=== PATIENT | female | born 1940 | race African-American/Black ===

== ENCOUNTER 2016-09-18 09:29 | Emergency (ER) | payer OTHER ==
[~2016-09-18] VITALS: Ht 162.6 cm; Wt 56.7 kg
[~2016-09-18 09:29] MED LIST: ACETAMINOPHEN-1 EAC1 PO; ACYCLOVIR 400400 M1 PO; ACYCLOVIR 400400 MG PO; ADULT LOW DOSE81 MG PO; KEFLEX500 MG PO; LEVOTHYROXIN0.025 MG PO; LISINOPRIL2.5 MG PO; NEXIUM40 MG PO; PAIN & FEVER500 MG PO; TRIAMCINOLONE A80 G2 TOP; VITAMIN D1000 UNI1 PO; ZESTRIL10 MG PO
[2016-09-18] MEDS ORDERED: CELEXA10 MG PO (09:42)
[2016-09-18] MEDS ORDERED: ESTRADIOL 1 MG T1 M1 TOP (09:43)
[2016-09-18] MEDS ORDERED: HYDROXYZINE HCL25 M1 PO (09:43)
== END 2016-09-18 10:36 | disposition home or self-care (01) ==
LOC: ER 09:29
DX: S30.0XXA Contusion of lower back and pelvis, initial encounter (principal); I10 Essential (primary) hypertension; K21.9 Gastro-esophageal reflux disease without esophagitis; E03.9 Hypothyroidism, unspecified; Z90.710 Acquired absence of both cervix and uterus; Z88.8 Allergy status to other drugs, medicaments and biological substances; Z91.013 Allergy to seafood; W01.0XXA Fall on same level from slipping, tripping and stumbling without subsequent striking against object, initial encounter; Y93.89 Activity, other specified; Y92.89 Other specified places as the place of occurrence of the external cause; Y99.8 Other external cause status

== ENCOUNTER 2016-10-12 10:42 | Emergency (ER) | payer OTHER ==
[~2016-10-12] VITALS: Ht 162.6 cm; Wt 55.8 kg
--- NOTE | ~2016-10-12 | EKG ---
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 10/13/16 0849 55 Devang Melgoza MD, [facility] /EPI
--- NOTE | ~2016-10-12 | EKG ---
[facility] [address] [address] ELECTROCARDIOGRAM REPORT Name: KENNEDY KEBEDEA JEAN Room [facility]: [facility] [id number] Admission: 10/12/16 Attend Phys: Discharge: Date of : 40 Report #: [id number] THIS REPORT FOR: //name// 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
[~2016-10-12 10:42] MED LIST changes: +CELEXA10 MG PO; +ESTRADIOL 1 MG T1 M1 TOP; +HYDROXYZINE HCL25 M1 PO
[2016-10-12 11:41] LABS: ABSOLUTE NEUTROPHILS 2.6 thou/uL (1.4-8.2); BASOPHILS 0.9 % (0.0-2.0); EOSINOPHILS 1.2 % (0.0-3.0); HEMATOCRIT 30.7 % (37.0-47.0); HEMOGLOBIN 10.2 gm/dL (12.0-15.0); LYMPHOCYTES 29.2 % (24.0-44.0); MCH 29.1 pg (26.0-34.0); MCHC 33.1 g/dL (28.0-37.0); MCV 87.8 fL (80.0-100.0); MONOCYTES 9.9 % (1.0-8.0); PLATELET COUNT 224 thou/uL (150-400); POLYS 58.8 % (36.0-66.0); RDW 14.8 % (10.5-14.5); WBC 4.4 thou/uL (4.0-11.0)
[2016-10-12 11:42] LABS: MANUAL DIFF NO
[2016-10-12 11:45] LABS: ANION GAP 5 mmol/L (7-16); BUN 17 mg/dL (7-18); CALCIUM 8.9 mg/dL (8.5-10.1); CHLORIDE 106 mmol/L (98-107); CO2 30 mmol/L (21-32); GLUCOSE 110 mg/dL (74-106); POTASSIUM 4.3 mmol/L (3.5-5.1); SODIUM 141 mmol/L (136-145)
[2016-10-12 11:53] LABS: TROPONIN-I < 0.04 ng/mL (<0.04-0.07)
[2016-10-12 12:19] LABS: DIRECT BILIRUBIN 0.1 mg/dL (<0.1-0.3); TOTAL BILIRUBIN 0.4 mg/dL (<0.1-1.0); TOTAL PROTEIN 7.3 g/dL (6.4-8.2)
== END 2016-10-12 13:28 | disposition home or self-care (01) ==
LOC: ER 10:42
PROVIDERS: Emergency Medicine; Nurse Practitioner
DX: R07.89 Other chest pain (principal); I10 Essential (primary) hypertension; K21.9 Gastro-esophageal reflux disease without esophagitis; E03.9 Hypothyroidism, unspecified; Z90.710 Acquired absence of both cervix and uterus; Z79.82 Long term (current) use of aspirin; Z88.8 Allergy status to other drugs, medicaments and biological substances; Z91.013 Allergy to seafood

== ENCOUNTER 2017-04-20 07:47 | Emergency (ER) | payer MEDICARE ==
[~2017-04-20] VITALS: Ht 157.5 cm; Wt 54.4 kg
[2017-04-20] MEDS ORDERED: ARICEPT 5 MG TAB5 MG PO (09:44)
[2017-04-20] MEDS ORDERED: ZYPREXA 5 MG TAB5 MG PO (09:44)
[2017-04-20] MEDS ORDERED: NAMENDA 10 MG T10 MG PO (09:44)
[2017-04-20 09:48] VITALS: BP 124/54
== END 2017-04-20 11:03 | disposition home or self-care (01) ==
LOC: ER 07:47
DX: S09.90XA Unspecified injury of head, initial encounter (principal); I10 Essential (primary) hypertension; K21.9 Gastro-esophageal reflux disease without esophagitis; E03.9 Hypothyroidism, unspecified; Z90.710 Acquired absence of both cervix and uterus; Z91.041 Radiographic dye allergy status; Z91.013 Allergy to seafood; W18.30XA Fall on same level, unspecified, initial encounter; Y93.89 Activity, other specified; Y92.89 Other specified places as the place of occurrence of the external cause; Y99.8 Other external cause status

== ENCOUNTER 2017-06-27 09:29 | Emergency (ER) | payer MEDICARE ==
[~2017-06-27] VITALS: Ht 162.6 cm; Wt 68.0 kg
[~2017-06-27 09:29] MED LIST changes: +ARICEPT 5 MG TAB5 MG PO; +NAMENDA 10 MG T10 MG PO; +ZYPREXA 5 MG TAB5 MG PO
[2017-06-27] MEDS ORDERED: NORCO 5-325 TA1 EACH PO (10:38)
== END 2017-06-27 11:19 | disposition home or self-care (01) ==
LOC: ER 09:29
DX: S09.90XA Unspecified injury of head, initial encounter (principal); M25.511 Pain in right shoulder; M25.512 Pain in left shoulder; M25.521 Pain in right elbow; I10 Essential (primary) hypertension; K21.9 Gastro-esophageal reflux disease without esophagitis; E03.9 Hypothyroidism, unspecified; Z91.041 Radiographic dye allergy status; Z91.013 Allergy to seafood; W06.XXXA Fall from bed, initial encounter; Y93.89 Activity, other specified; Y92.89 Other specified places as the place of occurrence of the external cause; Y99.8 Other external cause status

== ENCOUNTER 2018-04-17 11:35 | Emergency (ER) | payer MEDICARE ==
[~2018-04-17] VITALS: Ht 165.1 cm; Wt 56.7 kg
[~2018-04-17 11:35] MED LIST changes: +NORCO 5-325 TA1 EACH PO
[2018-04-17 13:30] VITALS: BP 114/56
== END 2018-04-17 13:30 | disposition home or self-care (01) ==
LOC: ER 11:35
DX: J02.9 Acute pharyngitis, unspecified (principal); J06.9 Acute upper respiratory infection, unspecified; I10 Essential (primary) hypertension; K21.9 Gastro-esophageal reflux disease without esophagitis; E03.9 Hypothyroidism, unspecified; Z90.710 Acquired absence of both cervix and uterus

== ENCOUNTER 2018-06-21 18:22 | Inpatient (IN) | payer MEDICARE ==
[~2018-06-21] VITALS: Ht 162.6 cm; Wt 58.5 kg
--- NOTE | ~2018-06-21 | D ---
[facility] [place] [address] [place] [address] DISCHARGE SUMMARY Name: ADONIS KEBEDE Room #: 360-[facility] IN M.R.#: [id number] Admission: 06/21/18 ������������������ Attend Phys: Nicholas Wilkinson MD Discharge: 06/24/18 ������������������ Date of : 40 Report #: [id number] THIS REPORT FOR: //name// CC: Nicholas Wilkinson DATE OF SERVICE: 06/24/2018 SUMMARY OF HISTORY AND PHYSICAL: The patient was brought to the Emergency Room by her son because of several days of chest discomfort and shortness of breath with exertion. The chest discomfort was variable and atypical for coronary disease. She did report walking fast made her chest discomfort worse and also made her short of breath. She was found to have bilateral pulmonary infiltrates as well as a fever of 38.2 with mild hypertensive response of 160/70. For these reasons, admission to treat community-acquired pneumonia was indicated. Review of her previous [facility] records showed multiple Emergency Room visits for noncardiac chest pain as well as a short stay admission on 08/06/2011 again for chest pain at which time a stress echocardiogram was negative. Subsequent Nuclear stress study 2012 was also negative. She was placed on intravenous antibiotics and intravenous fluids and got stronger. She was able to walk 100 feet with physical therapy and the day of discharge walked 20 feet. Occupational therapy noted that she was able to perform her ADLs with minimal assistance, although she did appear weak. It is noted that ordinarily she walks around the facility independently. She did use an IV pole on rollers on her second hospital day. She was noted to have poor safety and environmental awareness as well as navigational skills by the physical therapist. She did have a small localized tremor in her thumbs bilaterally. In the past in my office, she is noticed to have slight hesitating short gait. She one time complained of pain all over, but not further. She did report dysuria once. She had decreased breath sounds in the right base at discharge and crackles in both bases on admission. Her pharynx showed minimal uvular edema and she complained of a sore throat. Nursing staff reported she was forgetful and impulsive, but her leg strength to be strong. She had microhematuria, but her urine culture obtained from the Emergency Room specimen was no growth. Her usual morning dose of olanzapine was postponed her first hospital day, and that evening she became aggitated. Her son came in and assisted in getting her [facility] [address] [place] [address] DISCHARGE SUMMARY Name: ADONIS KEBEDE Room #: 360-P [facility] IN .R.#: [id number] Admission: 06/21/18 ������������������ Attend Phys: Nicholas Wilkinson MD Discharge: 06/24/18 ������������������ Date of : 40 Report #: [id number] to take her medication. There were no further behavoir problems. LABORATORY DATA: Creatinine was 0.8 on admission with a BUN of 13, which are baseline for her. Her SGOT was elevated at 96, it is usually normal. Lactic acid normal at 1.1. Troponin negative. NT-proBNP was 311. White blood cell count was 10,000 on admission with 73% neutrophils, 16% lymphocytes and mildly elevated monocytosis of 11%. Hemoglobin was 9.6, which is on the low range of her usual, which varies between 9.8 and 10.3 over the last several years in the office. Follow up white blood cell count dropped to 3.7 and hemoglobin dropped to 8.7 and stayed there. Sed rate was 30 and CRP was elevated at 28.8 (less than 9). Free T4 was 0.8 and TSH 0.725 both normal. Folate 20.6 and vitamin B12 was in the low normal range at 349. Erythropoietic and methylmalonic acid levels are pending at discharge. Urinalysis showed trace protein, 2+ ketones, 3+ blood, 0 to 9 bacteria were seen and 3 to 10 rbc's. Iron was low at 43, iron binding capacity low at 122 with 35% saturation. DIAGNOSTIC DATA: CT scan of the chest showed bibasilar atelectasis/infiltrates on chest x-ray to be "some linear atelectasis seen in the lung bases with tiny pleural effusion." There is a minor patchy infiltrate in the posterior aspect of the right upper lung and a minor patchy infiltrate in the mid left upper lung. Additional findings were 18 x 12 mm left thyroid mass and an extensive coronary atherosclerosis. MRI scan of the head showed minimal nonspecific foci of increased white matter signal consistent with microvascular ischemic change/nonspecific leukomalacia/demyelination. Note is made that these findings are minimal for the patient's age. DIAGNOSES: 1. Admitted for community-acquired pneumonia, minimal bilateral upper lobe patchy infiltrates by CT scanning. Linear atelectasis in the lung bases with tiny pleural effusion showed on the chest x-ray as atelectasis/infiltrate. 2. Left thyroid mass by CT scan of 18mm x 12 mm. There was a distant history of thyroid nodules seen on ultrasound at [facility] from 04/01/2012, which [facility] [address] [place] [address] DISCHARGE SUMMARY Name: ADONIS KEBEDE Room #: 360-P [facility] IN Sruthi#: [id number] Admission: 06/21/18 ������������������ Attend Phys: Nicholas Wilkinson MD Discharge: 06/24/18 ������������������ Date of : 40 Report #: [id number] includes an addendum noting that those two left thyroid lobe solid nodule masses were stable when compared with an outside study from 10/10/2008. A FNA of the nodules back then was negative. 3. Chronic microhematuria. 4. Mild chronic anemia of chronic disease with baseline hemoglobin from 9.8 to 10.3 with an acute drop to 8.7 from illness and hydration. Distant past a hematology consult and bone marrow diagnosed anemia of chronic disease, and a benign monoclomal gammopathy. Hb at that time was 11. 4a. Monoclonal gammopathy, benign, hx of. 5. Low iron levels. 6. Slowly progressive dementia. Prior evaluation by Napoleon Millard DO, at [facility]. 7. MRI scanning shows a fewer microvascular/nonspecific leukomalacia/demyelination type changes than expected for her age. 8. EKG showed nonspecific ST segment abnormalities and unchanged from 10/12/2016. 9. Coronary artery disease/coronary calcifications seen on CT scan - that is asymptomatic. Negative nuclear stress test 2012 [facility]. 10. Long history of noncardiac chest pain. 11. She did report dysuria on admission. 12. Hx of B 12 deficiency; B 12 low normal, MMA pending. 13. Hx of low vitamin D at 18. HOSPITAL COURSE: After 3 days of IV antibiotic was seen in infectious disease consultation by Dr. Felix Mckeon who agreed with the diagnosis of community-acquired pneumonia and recommended cefuroxime 500 mg orally for 5 more days. PLAN: The patient is returned home on her usual medications donepezil 10 mg in the morning at 6, loratadine 10 mg daily at 6, memantine 10 mg daily at 8 and olanzapine 5 mg daily at 8 for dementia with behavior problems. Acetaminophen is continued. Mucinex DM is continued. The only medication change is the addition of cefuroxime 500 mg twice daily for 7 more days. She is to follow up with me in my office in approximately 7 to 10 days. Further anemia evaluation is planned including stools for hidden blood and reticulocyte count and hemoglobin electrophoresis. Pending: Erythropoietin level and methylmalonic acid level. ��������������������������������������������� ���������������������������������������� By: ��������������������������������������������� [id number] Nicholas Wilkinson MD /nt
--- NOTE | ~2018-06-21 | H ---
[facility] [place] [address] [place] [address] HISTORY AND PHYSICAL Name: ADONIS KEBEDE Room #: 360-P [facility] IN M.R.#: [id number] Admission: 06/21/18 ������������������ Attend Phys: Nicholas Wilkinson MD Discharge: ������������������ Date of : 40 Report #: [id number] THIS REPORT FOR: //name// CC: Nicholas Wilkinson DATE OF SERVICE: 06/21/2018 CHIEF COMPLAINT: Shortness of breath. HISTORY OF PRESENT ILLNESS: I have followed the patient in my office for many years with slow steady progression of cognitive dysfunction and dementia over the last 5 years. She is unable to give an accurate history; therefore, information is obtained from the Emergency Room physician's record. She was brought to the Emergency Room by her son last night because of shortness of breath and left-sided chest pain that began earlier in the day. The chest pain was described as intermittent, lasting for perhaps 30 minutes at a time, having the nature of a dull ache and occurring both when sitting still or active. She does report walking fast makes the chest discomfort worse as well as cause shortness of breath. She also reports having burning with urination. She did volunteer a history of stomach acid reflux that has been controlled recently with her medication. At [facility], the [facility] living facility, her blood pressure has been elevated as well. PAST MEDICAL HISTORY: Has been significant for progressive dementia, GERD, hypertension, fatigue, anxiety, depression, hesitating gait, episodes of cystitis, nightmares, hypothyroidism. 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 She has had atrophic vulvar dermatitis in 2017 that responded to treatment and was bothersome for several months, Estrace cream was a successful treatment, and has not bothered her since. She was admitted to [facility] on 10/21/2016 when she was found wandering outside the apartment building where she was living at that time. She was felt to have mixed dementia and Dr. Jose Elias Farris, her psychiatrist recommended continuing her Zyprexa and the addition of Namenda. Additional history was B12 deficiency, anemia, remote history of shingles, vitamin D deficiency. Neuropsych testing by Dr. Ole Fraire, 07/12/2014 led to his diagnosis of major neurocognitive disorder (dementia), unspecified, without behavior disorder, moderate severity and depressive disorder, unspecified, with anxiety. [address] [address] HISTORY AND PHYSICAL Name: ADONIS KEBEDE Room #: 360-P [facility] IN M.Janina.#: [id number] Admission: 06/21/18 ������������������ Attend Phys: Nicholas Wilkinson MD Discharge: ������������������ Date of : 40 Report #: [id number] CURRENT MEDICATIONS: Donepezil 10 mg in the morning at 6:00, loratadine 10 mg daily at 6:00, memantine 10 mg daily at 8:00, olanzapine 5 mg daily at 8:00. Acetaminophen and Mucinex DM are p.r.n. medications. ALLERGIES: IODINE AND SHELLFISH. REVIEW OF SYSTEMS: She did report dysuria. FAMILY HISTORY: Not available. PHYSICAL EXAMINATION: VITAL SIGNS: Temperature in the Emergency Room was 38.2, pulse 108, blood pressure 160/70, respirations 16 and oxygen saturation 97%. GENERAL: Shows a 78-year-old female, in her hospital bed. At the time of my examination, she was without acute distress. She recognized me. HEENT: She appears to have mild edema of the facial structures. The oropharynx is normal. NECK: Negative. LUNGS: There are easily heard crackles in both lung bases with the rest of the breath sounds being normal. CARDIOVASCULAR: S1 and S2 are normal and the rhythm is regular. ABDOMEN: Soft, nontender, without hepatosplenomegaly or masses. SKIN: On the right buttock, there is a 1-2 cm, slightly darkened nummular area of pigmentation in the location where a shallow decubitus ulcer was present in March 2018 representing complete healing of that ulcer. EXTREMITIES: There is no clubbing, cyanosis or edema. NEUROLOGIC: Screening neurological examination shows no focal deficits. She was not ambulated for my exam; however, she is independently ambulatory at the assisted living facility. There was a mild intermittent tremor of the thumb and index finger of both hands that was variable. In the past in my office, she has had a shuffling gait. Chest x-ray showed focal pneumonia/atelectasis in the superior segment of the left lower lobe with some opacities suggesting right medial lower lobe pneumonia/atelectasis. ASSESSMENT: 1. Bilateral lower lobe community-acquired pneumonia. 2. Fever and tachycardia. 3. Tremor in his thumb and first fingers of both hands. 4. Progressive dementia of Alzheimer's type. 5. Physical findings of dehydration with a dry tongue. 6. Cystitis and abnormal UA 7. Other medical problems as mentioned above. PLAN: The patient is being continued on intravenous antibiotics for [facility] [address] [place] [address] HISTORY AND PHYSICAL Name: ADONIS KEBEDE Room #: 360-P [facility] IN .Janina.#: [id number] Admission: 06/21/18 ������������������ Attend Phys: Nicholas Wilkinson MD Discharge: ������������������ Date of : 40 Report #: [id number] community-acquired pneumonia. Laboratory will be done to assess the adequacy of her B12, thyroid and other metabolic parameters. IV fluids are being continued for her volume depletion. Evaluations by physical therapy, occupational therapy and by speech therapy. Neurology consultation regarding her tremor may be considered. Her home medications will be restarted. ��������������������������������������������� ���������������������������������������� By: ��������������������������������������������� 1929 39 Nicholas Wilkinson MD /nt
[2018-06-21 18:34] VITALS: BP 140/60
[2018-06-21 19:04] LABS: HEMATOCRIT 28.4 % (37.0-47.0); HEMOGLOBIN 9.6 gm/dL (12.0-15.0); MCH 29.5 pg (26.0-34.0); MCHC 33.7 g/dL (28.0-37.0); MCV 87.4 fL (80.0-100.0); RBC 3.25 mil/uL (4.20-5.00); RDW 14.5 % (10.5-14.5)
[2018-06-21 19:13] LABS: ANION GAP 5 mmol/L (7-16); BUN 13 mg/dL (7-18); CALCIUM 8.9 mg/dL (8.5-10.1); CHLORIDE 103 mmol/L (98-107); CO2 31 mmol/L (21-32); CREATININE 0.8 mg/dL (0.6-1.0); GLUCOSE 124 mg/dL (74-106); POTASSIUM 4.4 mmol/L (3.5-5.1); SODIUM 139 mmol/L (136-145)
[2018-06-21 19:22] LABS: ALBUMIN 3.8 g/dL (3.4-5.0); MAGNESIUM 1.9 mg/dL (1.8-2.4); SGOT 91 U/L (15-37); SGPT 27 U/L (30-65); TOTAL BILIRUBIN 0.4 mg/dL (<0.1-1.0); TOTAL PROTEIN 6.8 g/dL (6.4-8.2); TROPONIN-I <0.06 ng/mL (<0.06)
[2018-06-21 19:28] LABS: ABSOLUTE NEUTROPHILS 7.3 thou/uL (1.4-8.2); PLATELET COUNT 263 thou/uL (150-400)
[2018-06-21 19:40] LABS: URINE BILIRUBIN NEGATIVE (Negative); URINE BLOOD 3+ (Negative); URINE CLARITY CLEAR; URINE COLOR YELLOW; URINE GLUCOSE-RANDOM* NEGATIVE (Negative); URINE KETONES TRACE (Negative); URINE LEUKOCYTES-REFLEX NEGATIVE (Negative); URINE NITRITE-REFLEX NEGATIVE (Negative); URINE PROTEIN (DIPSTICK) TRACE (Negative); URINE SPECIFIC GRAVITY >= 1.030 (1.005-1.035); URINE UROBILINOGEN 0.2 E.U./dl (0.2-1.0)
[2018-06-21 20:00] LABS: CASTS None Seen /LPF (None Seen); CRYSTALS None Seen /LPF (None Seen); SQUAMOUS 0-3 Few /LPF (0-3); URINE RBC 3-10 Few /HPF (0-2); URINE WBC-REFLEX None Seen /HPF (0-5)
[2018-06-21 20:01] LABS: BACTERIA-REFLEX 1-9 Few /HPF (None Seen)
[2018-06-21 20:18] VITALS: BP 113/59
[2018-06-21 20:40] VITALS: BP 113/59
[2018-06-21 20:59] VITALS: BP 144/66
[2018-06-22 04:37] VITALS: BP 111/53
--- NOTE | 2018-06-22 07:58 | EKG ---
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 : 1940 Requested By: Moody Hauser Order Number: [id number] MD: Devang Melgoza Measurements Intervals [place] Rate: 84 P: 58 VA: 138 QRS: -14 QRSD: 69 T: 61 QT: 356 QTc: 421 Interpretive Statements Sinus rhythm Nonspecific ST segment abnormality Compared to ECG 10/12/2016 10:56:14 No significant change was found Electronically Signed On 06-22-2018 7:58:35 CDT by Devang Melgoza [email or web address] ��������������������������������������������� <ELECTRONICALLY SIGNED> ���������������������������������������� By: Devang Melgoza MD, [facility] ��������������������������������������������� 06/22/18 0758 29 29 Devang Melgoza MD, [facility]ACC /EPI
[2018-06-22 08:01] LABS: HEMATOCRIT 26.5 % (37.0-47.0); HEMOGLOBIN 8.7 gm/dL (12.0-15.0); MCH 28.7 pg (26.0-34.0); MCHC 32.8 g/dL (28.0-37.0); MCV 87.4 fL (80.0-100.0); RBC 3.03 mil/uL (4.20-5.00); RDW 14.5 % (10.5-14.5); WBC 4.2 thou/uL (4.0-11.0)
[2018-06-22 08:19] VITALS: BP 114/58
[2018-06-22 08:28] LABS: ALBUMIN 3.5 g/dL (3.4-5.0); CALCIUM 8.3 mg/dL (8.5-10.1); CREATININE 0.7 mg/dL (0.6-1.0); POTASSIUM 3.7 mmol/L (3.5-5.1); TOTAL BILIRUBIN 0.3 mg/dL (<0.1-1.0); TOTAL PROTEIN 5.7 g/dL (6.4-8.2)
[2018-06-22 08:41] LABS: ABSOLUTE NEUTROPHILS 2.6 thou/uL (1.4-8.2)
[2018-06-22 08:42] LABS: ANISOCYTOSIS 1+; OVALOCYTES FEW
[2018-06-22 08:43] LABS: PLATELET COUNT 163 thou/uL (150-400)
[2018-06-22 11:56] VITALS: BP 1321/62
[2018-06-22 15:04] VITALS: BP 119/80
[2018-06-22 17:27] VITALS: BP 124/71
[2018-06-22 19:15] VITALS: BP 139/71
[2018-06-23 03:47] VITALS: BP 148/56
[2018-06-23 05:52] LABS: ABSOLUTE NEUTROPHILS 2.1 thou/uL (1.4-8.2); BASOPHILS 0.6 % (0.0-2.0); EOSINOPHILS 0.7 % (0.0-3.0); HEMOGLOBIN 8.7 gm/dL (12.0-15.0); LYMPHOCYTES 33.9 % (24.0-44.0); MCH 28.8 pg (26.0-34.0); MCHC 33.4 g/dL (28.0-37.0); MCV 86.4 fL (80.0-100.0); MONOCYTES 9.7 % (1.0-8.0); PLATELET COUNT 149 thou/uL (150-400); POLYS 55.1 % (36.0-66.0); RBC 3.01 mil/uL (4.20-5.00); RDW 14.7 % (10.5-14.5); WBC 3.7 thou/uL (4.0-11.0)
[2018-06-23 06:09] LABS: ALBUMIN 2.9 g/dL (3.4-5.0); CALCIUM 8.2 mg/dL (8.5-10.1); CREATININE 0.6 mg/dL (0.6-1.0); POTASSIUM 3.8 mmol/L (3.5-5.1); TOTAL BILIRUBIN 0.2 mg/dL (<0.1-1.0); TOTAL PROTEIN 5.8 g/dL (6.4-8.2)
[2018-06-23 07:36] VITALS: BP 133/54
[2018-06-23 08:49] LABS: FOLIC ACID 20.6 ng/mL (8.6-58.9)
[2018-06-23 13:17] VITALS: BP 137/70
[2018-06-23 15:09] VITALS: BP 124/51
[2018-06-23 21:21] LABS: % SATURATION 35 % (20-39); IRON 43 ug/dL (50-170); TIBC 122 ug/dL (250-450)
[2018-06-23 22:40] VITALS: BP 125/65
[2018-06-24 04:05] VITALS: BP 139/72
[2018-06-24 07:34] VITALS: BP 127/54
[2018-06-24 11:12] VITALS: BP 119/61
[2018-06-24 15:47] VITALS: BP 160/79
[2018-06-24] MEDS ORDERED: MUCINEX DM ER1 EAC1 PO (18:31)
[2018-06-24] MEDS ORDERED: CLARITIN10 MG PO (18:31)
[2018-06-24] MEDS ORDERED: CEFUROXIME500 MG PO (18:31)
--- NOTE | 2018-06-27 09:14 | HC ---
[facility] [place] [address] CONSULTATION Name: ADONIS KEBEDE Room #: [facility] IN M.R.#: [id number] Admission: 06/21/18 ������������������ Attend Phys: Nicholas Wilkinson MD Discharge: 06/24/18 ������������������ Date of : 40 Report #: [id number] THIS REPORT FOR: //name// CC: Nicholas Wilkinson DATE OF SERVICE: 06/24/2018 INFECTIOUS DISEASE CONSULTATION ATTENDING PHYSICIAN: Nicholas Wilkinson MD REASON FOR CONSULTATION: Changing to oral antibiotics. HISTORY OF PRESENT ILLNESS: The patient is a 78-year-old woman residing in a local shelter and telling me that she is admitted after having a fall. Review of record from the ER indicates she is admitted with shortness of air and left-sided chest pain. Chest x-ray revealed minimal changes. She had low grade fevers on admission, required supplemental oxygen. She tells me she is improved compared to admission. PAST MEDICAL HISTORY: Hypertension, gastroesophageal reflux, hysterectomy, hypothyroidism. There is a history of burning on urination as well per review of records and she is known to have progressive dementia. There is a history of chronic fatigue, anxiety, depression and recurrent UTIs. History of herpes simplex, type 2 in the sacral area. B12 deficiency, treated. Anemia of chronic disease. History of shingles. SOCIAL HISTORY: See H and P, old record. FAMILY HISTORY: See H and P, old records. REVIEW OF SYSTEMS: As above and the patient is deemed to be not a reliable historian. DRUG ALLERGIES: IODINE. MEDICATIONS: She is on treatment with olanzapine, Rocephin 1 g IV daily, Zithromax 500 mg daily, memantine, donepezil, Atrovent and albuterol inhalation treatments, p.r.n. acetaminophen, ondansetron and morphine sulfate. PHYSICAL EXAMINATION: GENERAL: Well developed, not toxic looking. VITAL SIGNS: She was febrile on admission with a temperature of 100.7, readily defervesced and following vital signs are entered on computer today, temperature [facility] [address] [place] [address] CONSULTATION Name: ADONIS KEBEDE Room #: [address] [place] [address] [facility].#: [id number] Admission: 06/21/18 ������������������ Attend Phys: Nicholas Wilkinson MD Discharge: 06/24/18 ������������������ Date of : 40 Report #: [id number] 97.7, pulse 67, respirations 12, BP 122/54. Height 5 feet 4 inches, weight 129 pounds. The patient is on room air and at no point in time requiring supplemental oxygen. HEENMT: Within range. NECK: Supple. LUNGS: Clear. HEART: S1, S2. BREASTS: Deferred. ABDOMEN: Soft, no masses or megaly. EXTREMITIES: No pretibial edema, clubbing or cyanosis. PELVIC: Deferred. RECTAL: Deferred. LABORATORY DATA: Sodium 144, potassium 3.8, BUN 10, creatinine 0.6. Albumin 2.9. NT-proBNP 311. WBC on admission 10,000, hemoglobin 9.6. WBC repeated yesterday revealed this to have dropped to 3700, hemoglobin 8.7 g/dL and platelets 149,000 and white blood cell count unremarkable. Sed rate 30 mm per hour and the C-reactive protein highest level is 28.8 mg/L. MICROBIOLOGY DATA: Essentially negative and that included urine culture, blood cultures, rapid influenza test A and B. CT scan of the chest is obtained, I have no official report. Review of chest x-ray revealed some pleuropericardial disease, chronic; no obvious infiltrates. An MRI of the head was ordered and canceled. ASSESSMENT: 1. Fever, question etiology, resolved. 2. Possible healthcare-associated pneumonia, treated. 3. Mild leukopenia and thrombocytopenia. 4. Hypoalbuminemia. 5. Anemia of chronic disease. 6. Dementia. SUGGESTIONS: Recommend discontinue Rocephin and Zithromax and prescribed cefuroxime 500 [address]o. [address].i.d. for [address] Wilkinson, thank you for requesting my suggestions. ��������������������������������������������� <ELECTRONICALLY SIGNED> ���������������������������������������� By: Felix Mckeon MD ��������������������������������������������� 06/27/18 0914 1006 0217 Felix Mckeon MD /nt
== END 2018-06-24 19:00 | disposition home health service (06) | DRG 195 ==
LOC: ER 18:22 → 3W 20:04 → EROBS 20:04 → 3W 20:37 → ENTRNSPT 06-24 19:20
PROVIDERS: Emergency Medicine; ADMIT Internal Medicine
DX: J18.1 Lobar pneumonia, unspecified organism (principal); I10 Essential (primary) hypertension; N30.91 Cystitis, unspecified with hematuria; K21.9 Gastro-esophageal reflux disease without esophagitis; E03.9 Hypothyroidism, unspecified; E07.9 Disorder of thyroid, unspecified; F02.80 Dementia in other diseases classified elsewhere, unspecified severity, without behavioral disturbance, psychotic disturbance, mood disturbance, and anxiety; D63.8 Anemia in other chronic diseases classified elsewhere; D47.2 Monoclonal gammopathy; D69.6 Thrombocytopenia, unspecified; D72.819 Decreased white blood cell count, unspecified; I25.10 Atherosclerotic heart disease of native coronary artery without angina pectoris; F41.9 Anxiety disorder, unspecified; F32.9 Major depressive disorder, single episode, unspecified; R00.0 Tachycardia, unspecified; R25.1 Tremor, unspecified; G30.9 Alzheimer's disease, unspecified; E86.0 Dehydration; E86.9 Volume depletion, unspecified; Z79.899 Other long term (current) drug therapy; Z90.710 Acquired absence of both cervix and uterus; Z91.041 Radiographic dye allergy status; Z91.013 Allergy to seafood
CPT/HCPCS: 10879

== ENCOUNTER 2018-06-25 11:36 | Inpatient (IN) | payer MEDICARE ==
[~2018-06-25] VITALS: Ht 162.6 cm; Wt 56.7 kg
[~2018-06-25 11:36] MED LIST changes: +CEFUROXIME500 MG PO; +CLARITIN10 MG PO; +MUCINEX DM ER1 EAC1 PO
[2018-06-25 11:37] VITALS: BP 127/57
[2018-06-25 12:01] LABS: HEMATOCRIT 27.5 % (37.0-47.0); HEMOGLOBIN 9.3 gm/dL (12.0-15.0); MCH 29.2 pg (26.0-34.0); MCHC 33.8 g/dL (28.0-37.0); MCV 86.4 fL (80.0-100.0); PLATELET COUNT 173 thou/uL (150-400); RBC 3.19 mil/uL (4.20-5.00); RDW 13.9 % (10.5-14.5); WBC 3.7 thou/uL (4.0-11.0)
[2018-06-25 12:10] LABS: URINE BILIRUBIN NEGATIVE (Negative); URINE BLOOD 1+ (Negative); URINE CLARITY CLEAR; URINE COLOR YELLOW; URINE GLUCOSE-RANDOM* NEGATIVE (Negative); URINE KETONES 2+ (Negative); URINE LEUKOCYTES-REFLEX NEGATIVE (Negative); URINE NITRITE-REFLEX NEGATIVE (Negative); URINE PROTEIN (DIPSTICK) TRACE (Negative); URINE SPECIFIC GRAVITY 1.015 (1.005-1.035); URINE UROBILINOGEN 0.2 E.U./dl (0.2-1.0)
[2018-06-25 12:14] LABS: ANION GAP 8 mmol/L (7-16); BUN 6 mg/dL (7-18); CHLORIDE 104 mmol/L (98-107); CO2 30 mmol/L (21-32); CREATININE 0.8 mg/dL (0.6-1.0); GLUCOSE 90 mg/dL (74-106); POTASSIUM 3.8 mmol/L (3.5-5.1); SODIUM 142 mmol/L (136-145)
[2018-06-25 12:23] LABS: BACTERIA-REFLEX 1-9 Few /HPF (None Seen); CASTS None Seen /LPF (None Seen); CRYSTALS None Seen /LPF (None Seen); SQUAMOUS None Seen /LPF (0-3); URINE RBC 3-10 Few /HPF (0-2); URINE WBC-REFLEX None Seen /HPF (0-5)
[2018-06-25 12:28] LABS: ABSOLUTE NEUTROPHILS 2.8 thou/uL (1.4-8.2); ANISOCYTOSIS 1+; POLYCHROMASIA OCCASIONAL
[2018-06-25 12:29] LABS: ALBUMIN 3.5 g/dL (3.4-5.0); MAGNESIUM 1.8 mg/dL (1.8-2.4); SGOT 69 U/L (15-37); SGPT 32 U/L (30-65); TOTAL BILIRUBIN 0.4 mg/dL (<0.1-1.0); TOTAL PROTEIN 6.9 g/dL (6.4-8.2); TROPONIN-I <0.06 ng/mL (<0.06)
[2018-06-25 15:22] VITALS: BP 146/44
--- NOTE | 2018-06-25 16:58 | NUR ---
Pt arrived to unit per cart from emergency room at 1610 accompanied by son and tech. Pt alert and oriented x4. Admission hx,assessment and care plan completed.Son left after assessment and wanted to be notify if needed. evidence technician in room at present for procedure.Will continue to monitor.
[2018-06-25 18:00] VITALS: BP 144/60
[2018-06-25 20:40] VITALS: BP 137/60
--- NOTE | 2018-06-26 03:40 | NUR ---
PT IS ALERT TO SELF.CONFUSED.ON ROOM AIR, SATTING OKAY.APPEARS WEAK. FALL PREC IN PLACE. VSS. IVF RUNNNING THRO LFA. AFEBRILE.
[2018-06-26 04:21] VITALS: BP 136/44
--- NOTE | 2018-06-26 11:45 | EKG ---
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: Janina BLACKBURN : 1940 Requested By: Moody Hauser Order Number: [id number] MD: Devang Melgoza Measurements Intervals [place] Rate: 73 P: [place]: QRS: -14 QRSD: 66 T: 43 QT: 383 QTc: 422 Interpretive Statements Normal sinus rhythm Nonspecific ST segment abnormality Compared to ECG 06/21/2018 18:30:48 no significant change was found Electronically Signed On 06-26-2018 11:44:59 CDT by Devang Melgoza [email or web address] ��������������������������������������������� <ELECTRONICALLY SIGNED> ���������������������������������������� By: Devang Melgoza MD, [facility] ��������������������������������������������� 06/26/18 1144 1153 1153 Devang Melgoza MD, FACC /EPI
[2018-06-26 13:09] LABS: IgA 118 mg/dL (64-422); IgG 1018 mg/dL (700-1600); IgM 45 mg/dL (26-217)
--- NOTE | 2018-06-26 14:45 | NUR ---
Assumed pt care at 7am.Assessment completed.vss.Pt in bed trying to get out of bed without assist.very confused and disoriented.Transfered pt to chair after pericare given.Am meds given with breakfast and well tolerated.Family here to visit and updates given.Pt in bed resting at present talking about leaving for home today.Rn reorient pt. Will continue to monitor.
[2018-06-26 20:45] VITALS: BP 149/103
--- NOTE | 2018-06-27 01:29 | NUR ---
ASSESSMENT COMPLETED.PT ALERT WITH CONFUSION.PT NEEDS CONSTANT REMINDER TO USE CALL LIGHT FOR ASSISTANCE SHE IS NOT COMPLIANT WITH FALL PRECAUTIONS.SOME REDNESS NOTED ON HER LOWER BACK AND BUTTOCK,CLEANED,BARRIER CREAM APPLIED.PT REPOSITIONED WHILE IN BED.IVF INFUSING ORDERED.UP WITH ASSIST X1 TO BSC.PT RESTING ON HER BED AT THIS TIME.FALL PRECAUTIONS IN PLACE.CALL LIGHT WITHIN REACH.
[2018-06-27 03:00] VITALS: BP 145/63
[2018-06-27 06:50] LABS: HEMATOCRIT 28.2 % (37.0-47.0); HEMOGLOBIN 9.2 gm/dL (12.0-15.0); MCH 28.5 pg (26.0-34.0); MCHC 32.6 g/dL (28.0-37.0); MCV 87.4 fL (80.0-100.0); RBC 3.22 mil/uL (4.20-5.00); RDW 14.1 % (10.5-14.5); WBC 3.3 thou/uL (4.0-11.0)
[2018-06-27 07:08] LABS: CALCIUM 8.8 mg/dL (8.5-10.1); CREATININE 0.7 mg/dL (0.6-1.0); POTASSIUM 3.1 mmol/L (3.5-5.1)
--- NOTE | 2018-06-27 07:56 | NUR ---
ASSESMENT COMPLETED. OX1-2. VERY FORGETFUL. IMPULSIVE. DENIES PAIN. NO NOTED SOA. NO NV. UP WITH ASSIST X1. BED ALARM ON. PT RESTING IN BED AT THIS TIME. WILL CONT. TO MONITOR.
[2018-06-27 08:30] VITALS: BP 129/55
--- NOTE | 2018-06-27 16:07 | NUR ---
PT ADMITTED RELATED TO WEAKNESS,RHABDO AND PNEUMONIA. CM REVIEWED CHART AND SPOKE WITH CARE TEAM. CM MET WITH PT AT BEDSIDE THIS DAY. PT INDICATED SHE LIVES AT [facility]. SHE HAD RECENTLY DISCHARGE HOME FROM THE HOSPITAL WITH [facility]. THEY HADN'T STARTED CARE YET. PT INDICATED SHE ANTICPATES RETURNING HOME ONCE MEDICALLY STABLE WITH [facility]. CM TO FOLLOW INDICATED WITH DC PLANNING.
[2018-06-27 18:26] VITALS: BP 142/62
[2018-06-27 19:34] VITALS: BP 154/58
--- NOTE | 2018-06-27 21:50 | H ---
[facility] [place] [address] HISTORY AND PHYSICAL Name: ADONIS KEBEDE Room #: 419-P ADM IN M.R.#: [id number] Admission: 06/25/18 ������������������ Attend Phys: Rashi Reilly MD Discharge: ������������������ Date of : 40 Report #: [id number] THIS REPORT FOR: //name// CC: Rashi Wilkinson MD DATE OF SERVICE: 06/25/2018 Admitting History and Physical CHIEF COMPLAINT: Weakness. HISTORY OF PRESENT ILLNESS: The patient is a 78-year-old black female who presents to the emergency room at [facility] from her home at [facility] with complaints of generalized weakness. The patient is not a very reliable historian because of underlying dementia. I did speak with Dr. Wilkinson and with Dr. Hauser about her care in her case. She was just discharged from the hospital yesterday after being admitted for 3 days with a community-acquired pneumonia. It was confirmed by CT with bilateral upper lobe infiltrates. She was sent home with cefuroxime 500 mg twice daily after receiving intravenous antibiotics in the hospital. The patient is unable to provide much useful information in our conversation on the date of admission. PAST MEDICAL HISTORY: She has a past medical history in addition to the pneumonia of hypertension, gastroesophageal reflux disease, hypothyroidism, hysterectomy, dementia, depression, vitamin D deficiency, anxiety, depression, fatigue, hesitating gait, recurrent cystitis and nightmares. 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 She also has history of vitamin B12 deficiency, chronic anemia, remote history of shingles and vitamin D deficiency. This information is obtained from her prior history and physical done by Dr. Wilkinson who has been seeing the patient for many years, preceding this admission. She does have a history of monoclonal gammopathy of uncertain significance. She has had a hysterectomy in the past. MEDICATIONS: From discharge include the following: Acetaminophen, Aricept, Namenda, Zyprexa, cefuroxime axetil, loratadine, Mucinex DM. Other reported medicines that she has been taking recently include esomeprazole, aspirin, vitamin D3, acyclovir, levothyroxine, lisinopril, citalopram, hydroxyzine, estradiol. ALLERGIES: She has allergies to IODINE and SHELLFISH. FAMILY HISTORY: Unobtainable. [address] [address] HISTORY AND PHYSICAL Name: ADONIS KEBEDE Room #: 419-P [facility] IN [facility].#: [id number] Admission: 06/25/18 ������������������ Attend Phys: Rashi Reilly MD Discharge: ������������������ Date of : 40 Report #: [id number] SOCIAL HISTORY: The patient is apparently . Her durable power of sports attorney is a son named Antonio, I am told. She is a nonsmoker, nondrinker, does not have any known vices at this time. REVIEW OF SYSTEMS: She has noticed increasing problems with tremor, but denies any other problems lately. In particular, she did not note the left lower quadrant abdominal pain that was mentioned in the emergency room earlier today. PHYSICAL EXAMINATION: VITAL SIGNS: In the emergency room, temperature is 37.7 degrees centigrade, the respiratory rate is 15, the oxygen saturation on room air is 99%, pulse is 73, blood pressure is 127/57, and the reported weight is 125 pounds. GENERAL: On physical exam in the hospital, the patient is a very pleasant elderly -Luxembourger female who claims that she remembers having visited with me in the past at [facility], where I see other patients. HEENT: The extraocular muscles are intact. The face is somewhat flat affected with decreased blinking noted. Tongue is moist without lesions or exudate. Sinuses are nontender. Hearing seems grossly normal. NECK: Reveals prominent thyroid gland. No palpable adenopathy and no distinct tenderness. Range of motion is reasonably good. EXTREMITIES: There is resting tremor in both upper extremities. There is cogwheel rigidity, more noticeable on the left than the right side in the upper extremities. Gait was not assessed during this evaluation. LUNGS: Fairly clear to auscultation bilaterally. No wheezing, not even with cough. CARDIAC: Regular and distant. ABDOMEN: Soft. Bowel sounds are present throughout. No visceromegaly or masses. No left lower quadrant tenderness. EXTREMITIES: No cyanosis or clubbing or peripheral edema. She does not have any wounds on her feet. MENTAL STATUS: She is alert, oriented to person, but not place or time. No overt hallucinations or delusions, but her short term memory is quite poor and her long-term memory is only slightly better. DIAGNOSTIC DATA: EKG in the emergency room showed a normal sinus rhythm with nonspecific ST changes laterally and it is compared to an EKG from 06/21 and found to be unchanged. LABORATORY DATA: Urinalysis done in the emergency room shows 3-10 red blood cells per high power field, correlating with 1+ dipstick blood, ketones, also measured at 2+, protein was trace and urine bacteria were 1-9 and labeled as few. NT-proBNP was 454. The chemistry showed a CPK of 1363 with a stable BUN and creatinine. The AST was elevated at 69, otherwise liver enzymes were normal. On CBC, the patient had a hemoglobin of 9.3, which is stable from her prior hospitalization and white blood cell count was 3700, not being left shift. [facility] [address] [place] [address] HISTORY AND PHYSICAL Name: ADONIS KEBEDE Room #: 419-P ADM IN M.R.#: [id number] Admission: 06/25/18 ������������������ Attend Phys: Rashi Reilly MD Discharge: ������������������ Date of : 40 Report #: [id number] Total protein was 6.9, albumin was 3.5. The patient does have pending immunofluorescence electrophoresis and protein electrophoresis pending from her last admission. IMAGING DATA: Chest x-ray done in the emergency room today shows a benign-appearing chest x-ray without any acute cardiopulmonary process or fractures. ASSESSMENT AND PLAN: 1. Rhabdomyolysis. Given the patient's uncertain history giving ability, I suspect she had a fall, but could find no evidence of it today. The patient did admit to having had a fall in her bathroom, but is uncertain as to whether it was yesterday or 2 weeks ago. The elevated CPK may well be due to this fall, although I would have expected significantly worsening renal function on her labs today. Nonetheless, we will give her intravenous fluids and monitor closely. 2. Recent pneumonia, incompletely treated. Chest x-ray findings were not particularly impressive before. I was made aware that the facility in which the patient resides has at least 1 and as many as 4 residents who have influenza A at this time. This patient was originally tested with a rapid swab test that was negative for influenza A and B during her last admission upon admission. I will get a respiratory viral panel to further confirm the absence of those 2 viruses. We will also look for other common respiratory viruses that might be responsible for her illness. She does not appear to be in respiratory distress at this time. 3. General debility. We will start physical and occupational therapy when the patient is able: 4. Gastroesophageal reflux disease - continue current therapy. 5. Chronic hypertension and osteoporosis and atrophic vulvar dermatitis and hypothyroidism - We will continue supportive care of these problems and continue home medications. 6. Significant tremor and bradykinesia - I think this patient has Parkinson's disease. Since I am seeing her in coverage for Dr. Wilkinson this weekend, I would like to defer to his expertise and judgment since she has known the patient for a long time and this is generally considered a clinical diagnosis. If she has not had one, a swallowing study may also be in order to see if there is any evidence of dysphagia 7. Chronic anemia. See recent workup, this is consistent with anemia of chronic inflammation. ��������������������������������������������� <ELECTRONICALLY SIGNED> ���������������������������������������� By: Rashi Reilly MD ��������������������������������������������� 06/27/18 2150 [id number] Rashi Reilly MD /nt
--- NOTE | 2018-06-28 01:46 | NUR ---
ASSESSMENT COMPLETED.DR YUAN HERE TO SEE PT,ORDERS NOTED.PT ALERT TO SELF,IMPULSIVE AND FORGETFUL.PT NEEDS CONSTANT REMINDER TO USE CALL LIGHT FOR ASSISTANCE,NOT COMPLIANT WITH FALL PRECAUTIONS.IVF INFUSING ORDERED.PT RESTING ON HER BED AT THIS TIME.FALL PRECAUTIONS IN PLACE,CALL LIGHT WITHIN REACH.
[2018-06-28 06:26] VITALS: BP 153/66
[2018-06-28 07:06] LABS: CREATININE 0.7 mg/dL (0.6-1.0); POTASSIUM 3.5 mmol/L (3.5-5.1)
[2018-06-28 07:30] VITALS: BP 134/63
--- NOTE | 2018-06-28 08:19 | NUR ---
RECEIVED PT APPROX 0715. ASSESMENT COMPLETED. VSS. SLEEPY THIS AM. NO NOTED SOA. NO NV. PT RESTING IN BED. INCONTINENT OF URINE THIS AM. FALL PREC INTACT. WILL CONT. TO MONITOR.
--- NOTE | 2018-06-28 13:32 | NUR ---
78 YEAR OLD FEMALE WAS ADMITTED TO [facility] ON 06/25/18. AROUND 0900, PATIENT WAS PLACED ON CONTACT ISOLATION PROTOCOL FOR GENITAL HERPES WITH A POSSIBILITY OF SHINGLES. 1230, STUDENT NURSE PROMPTED THE PATIENT TO USE THE CALL LIGHT AFTER CHAIR ALARM SOUNDED DUE TO PATIENT AMBULATING TO FEET. PATIENT IS UP WITH ASSISTANCE 1X WITH A GAIT BELT AND WALKER. PATIENT IS FORGETFUL AND ORIENTED TO SELF.
--- NOTE | 2018-06-28 14:10 | NUR ---
I have reviewed and concur with student documentation.
[2018-06-28 16:07] LABS: GLOBULIN TOTAL 2.7 g/dL (2.2-3.9); M-SPIKE 0.5 g/dL (Not Observed)
[2018-06-28 17:08] VITALS: BP 124/61
[2018-06-28 20:00] VITALS: BP 125/50
[2018-06-29 05:30] VITALS: BP 117/58
--- NOTE | 2018-06-29 05:39 | NUR ---
PT SLEPT MOST OF THE NIGHT.IMPULSIVE. GETS UP WITH SBA TO THE BSC. ISOLATION FOR POSSIBLE SHINGLES. PT DENIES PAIN. COMPLAINING ABOUT TOO MANY MEDS THAT SHE IS TAKING. WITH CONFUSION. REMAINS WEAK WITH UPPER EXTREMITY TREMORS.AFEBRILE. WILL CONTINUE WITH POC.
--- NOTE | 2018-06-29 06:33 | NUR ---
PT REFUSED ALL MEDICATIONS THIS MORNING. TRIED TO OFFER IT WITH PUDDING OR JUICE BUT SHE STILL REFUSED IT AND KEPT SAYING "LEAVE ME ALONE"
[2018-06-29 07:18] VITALS: BP 143/44
[2018-06-29 09:17] LABS: HSV PCR SOURCE BLOOD
--- NOTE | 2018-06-29 10:56 | HC ---
[facility] [place] [address] CONSULTATION Name: ADONIS KEBEDE Room #: 419-P [facility] IN M.R.#: [id number] Admission: 06/25/18 ������������������ Attend Phys: Rashi Reilly MD Discharge: ������������������ Date of : 40 Report #: [id number] THIS REPORT FOR: //name// CC: Rashi Wilkinson DATE OF SERVICE: 06/28/2018 INFECTIOUS DISEASE CONSULTATION ATTENDING PHYSICIAN: Nicholas Wilkinson MD REASON FOR CONSULTATION: Herpetic lesion of the right gluteal area, question shingles versus HSV 1-2. HISTORY OF PRESENT ILLNESS: A 78-year-old woman recently discharged after being treated for possible pneumonia. She was discharged on cefuroxime 500 b.i.d. to be readmitted 1 day later and at this point in time, she is complaining of painful lesions on the right gluteal region. The patient tells me she never had this before, but Dr. Wilkinson confirms that he has treated this patient multiple times for recurrent herpetic lesion of the gluteal area. The patient is feeling better. She has less weakness compared to the time of admission. She has no respiratory symptoms or gastrointestinal symptoms. PAST MEDICAL HISTORY: Hypertension. Gastroesophageal reflux. Hypothyroidism. Dementia. Recent episode of pneumonia. Recurrent herpetic lesions in the gluteal area. Recent development of leukopenia possibly related to the viral infection. Tremors, question Parkinson's disease. History of UTI. Depression. B12 deficiency. Anemia of chronic disease. History of shingles. DRUG ALLERGIES: IODINE. MEDICATIONS: The patient is on cefuroxime 500 p.o. b.i.d., oseltamivir 75 mg p.o. b.i.d. for 5 days and acyclovir 400 mg p.o. t.i.d. She is also on treatment with potassium chloride, olanzapine, memantine, donepezil, cholecalciferol, aspirin, loratadine, lisinopril, levothyroxine, pantoprazole, carbidopa and levodopa, guaifenesin with dextromethorphan, p.r.n. Tylenol, p.r.n. ondansetron. SOCIAL HISTORY: See H and P. FAMILY HISTORY: See H and P, old records. PHYSICAL EXAMINATION: GENERAL: The patient only tells me about the painful crops of lesions on the right gluteal area, the weakness appears to have resolved, relates no [address] [address] CONSULTATION Name: ADONIS KEBEDE Room #: 419-P [facility] IN [facility]#: [id number] Admission: 06/25/18 ������������������ Attend Phys: Rashi Reilly MD Discharge: ������������������ Date of : 40 Report #: [id number] respiratory symptoms. VITAL SIGNS: Temperature maximum since admission is 99.8, 99.9 on the date of admission, pulse 51, respirations 16, BP 134/63. Height 5 feet 4 inches, weight 125 pounds. HEENMT: Within range. NECK: Supple, no thyromegaly. BREASTS: Deferred. LUNGS: Clear. HEART: S1, S2. No gallop. ABDOMEN: Soft, no masses or megaly. PELVIC: Deferred. RECTAL: Deferred. EXTREMITIES: No clubbing or cyanosis. BACK: On the right gluteal region, there are crops of lesions by some distance, that may be most likely herpes simplex type 2, but of course with multiple distribution in dermatomal pattern, the possibility of varicella zoster must be entertained. NEUROLOGIC: Grossly within normal limits. LABORATORY DATA: Revealed the following abnormals: CO2 of 34, CPK elevated on admission 1363, decreased to 690 in few days, mild elevation of NT-proBNP, CRP of 21.8 mg/L, it was 28.8 on 06/23/2018. WBC remains low at 3300, hemoglobin low at 9.2 g/dL, remainder normal. IgG, IgA and IgM are normal. Influenza A and B negative. Urinalysis revealed 2+ ketones, 1+ blood, some microscopic hematuria and bacteriuria. Cultures are all pending at the time of this dictation. RADIOLOGY EVALUATION: CT scan of the chest on 06/24/2018 revealed some upper lobe infiltrates, minimal. Chest x-ray, no obvious infiltrate. Ultrasound of the thyroid revealed some pulmonary nodules. Ultrasound of the pelvis transvaginally revealed nonvisualization of the uterus and ovaries, which I believe were removed, shadowing calcification in the region of the cervix. ASSESSMENT: 1. Right gluteal herpetic lesions, either HSV 1-2 versus varicella zoster virus, suspect the former. 2. Leukopenia secondary to above. 3. Anemia. 4. Dementia. 5. Question Parkinson's disease. 6. Recent history of pneumonia. SUGGESTIONS: Recommend discontinuing oseltamivir and acyclovir since the influenza A and B tests were negative and she has no symptoms to suggest influenza. Change the acyclovir to Valtrex in view of better oral absorption, dose 1 g p.o. t.i.d. Obtain PCR testing of the herpetic lesions for HSV 1 and [address] [address] CONSULTATION Name: ADONIS KEBEDE Room #: 419-P ADM IN M.R.#: [id number] Admission: 06/25/18 ������������������ Attend Phys: Rashi Reilly MD Discharge: ������������������ Date of : 40 Report #: [id number] as well as varicella zoster virus; a few more days of cefuroxime and discontinue it. Discussed situation with Dr. Wilkinson. Dr. Wilkinson, thank you for requesting my suggestions. ��������������������������������������������� <ELECTRONICALLY SIGNED> ���������������������������������������� By: Felix Mckeon MD ��������������������������������������������� 06/29/18 1056 [id number] Felix Mckeon MD /nt
[2018-06-29 15:22] VITALS: BP 141/67
--- NOTE | 2018-06-29 15:24 | NUR ---
PATIENT SEEN BY ARASH NGUYỄN NP, FOR DR. HARDWICK. PATIENT DOES NOT MEET CRITERIA FOR 5 NORTH AND PATIENT PLANS TO RETURN TO HOME AT DISCHARGE. ARASH SUGGESTED SKILLED VS. BACK TO [place] WITH [facility]. THANK YOU FOR THIS REFERRAL.
[2018-06-29 17:10] LABS: ANTI-DNA SCREEN 1 IU/mL (0-9); ANTI-RNP <0.2 AI (0.0-0.9)
--- NOTE | 2018-06-29 18:01 | HC ---
[facility] [place] [address] CONSULTATION Name: ADONIS KEBEDE Room #: 419-P ADM IN M.R.#: [id number] Admission: 06/25/18 ������������������ Attend Phys: Rashi Reilly MD Discharge: ������������������ Date of : 40 Report #: [id number] THIS REPORT FOR: //name// CC: Rashi Wilkinson DATE OF SERVICE: 06/27/2018 HISTORY OF PRESENT ILLNESS: This is a 78-year-old female patient who was evaluated by me today for the possibility of Parkinson disease. The patient is a poor historian. Her memory looks poor. I do not know what her baseline memory is. Record indicates she is in independent living. She had an MRI done just a few days ago and that MRI was unremarkable. She was admitted with weakness. She indicates that she has a longstanding tremor, but that does not interfere with her daily activity. She is able to carry out the activities of daily living with this tremor. Sometimes, she feels some stiffness, but that also does not interfere with her daily activity. REVIEW OF SYSTEMS: Indicate that she was admitted with pneumonia recently. She has a history of hypertension, gastroesophageal reflux disease, hypothyroidism, dementia, depression, anxiety, apparently some gait abnormality. She has some nightmares. It does not look like she has any REM related behavior. She apparently has a history of B12 deficiency, chronic anemia, this is from the records, she does not know anything about it. Record also indicates monoclonal gammopathy. She denies any change in her vision, any ENT symptoms. She denies any chest pain, respiratory difficulty, GI, , musculoskeletal, constitutional, dermatological, hematological, psychiatric, throat, allergic symptom associated with present symptomatology. PAST MEDICAL HISTORY: Positive for tremor, which has been present for some time. FAMILY HISTORY: Negative for essential tremor. SOCIAL HISTORY: She says she lives independently. She does have a son, Antonio, who helps. She is not a smoker or does not drink any alcohol. PHYSICAL EXAMINATION: Indicates she is alert, responsive, able to follow simple and complex command. She does not know the month, she does not know the day and she did not know what hospital she is in. Her speech looks intact. Cranial nerve examination 2-12 looks unremarkable. She moves all 4 extremities. Her position sense appeared to be intact. Reflexes are symmetrical. There is no meningeal sign. She could not cooperate for the fundus examination. Her pulses are somewhat difficult to feel. She has no edema, cyanosis or jaundice. She is [facility] [address] [place] [address] CONSULTATION Name: ADONIS KEBEDE Room #: 419-P [facility] IN [facility]#: [id number] Admission: 06/25/18 ������������������ Attend Phys: Rashi Reilly MD Discharge: ������������������ Date of : 40 Report #: [id number] moderately built individual. She has no thyroid mass. Her hearing and vision looks adequate. Blood pressure is 129/55, respiration is 18, pulse is 58, and temperature is 97.7. LABORATORY DATA: Indicates a white count of 3.3 and hemoglobin of 9.2. BUN and creatinine is normal. She did have an MRI recently and that was unremarkable. She does have mild tremor and rigidity. IMPRESSION AND PLAN: This patient does appear to have early Parkinson disease. She indicates that is not interfering with her daily activity. Because of that, I do not believe any treatment should be started. This is because the treatment for Parkinson disease is symptomatic and not of the underlying cause. Therefore, the treatment should be delayed as long as possible to prevent the long-term side effect from the medications. She recently had a B12 and TSH and there is no need to repeat that. She does appear to have significant dementia on clinical examination. I do not know how much is new and how much is old, but clinically, it looks old. I will suggest getting a formal neuropsychological testing done in this patient during this admission to decide appropriate living arrangement for this patient. We can see her as an outpatient and please feel free to contact me in case you have any question. ��������������������������������������������� <ELECTRONICALLY SIGNED> ���������������������������������������� By: Mio Gregory MD ��������������������������������������������� 06/29/18 1801 [id number] Mio Gregory MD /nt
--- NOTE | 2018-06-29 18:40 | NUR ---
ASSUMED CARE OF PT AT 0700. ASSESSMENT COMPLETED. ALERT TO SELF AND PLACE ONLY. PT CONFUSED AND FORGETFUL AT TIMES. PT TOOK ALL MEDS DURING THIS SHIFT. PT WEAK, UP TO BEDSIDE COMMODE WITH X1 ASSIST. PT HAD VERY LITTLE APPETITE, REFUSED BREAKFAST AND DINNER. INCONTINENCE AT TIMES. SKIN INTACT. ROOM AIR. DENIES PAIN. PT FREQUENTLY ASKS ABOUT HER , REORIENTED NEEDED. PT SLEPT MOST OF THE DAY. IN STABLE CONDITION, NO OTHER CHANGE IN STATUS.
[2018-06-29 21:21] VITALS: BP 186/70
--- NOTE | 2018-06-30 02:22 | NUR ---
PT WAS COOPERATIVE WITH CARES. TOOK ALL HER HS MEDS WITH NO DIFFICULTIES.PT GETS UP TO THE BSC WITH ASSIT X 1- SHE IS IMPULSIVE. VSS.ISOLATION FOR SHINGLES. AFEBRILE. DENIES NAUSEA OR VOMITING. POOR APPETITE. WILL CONTINUE WITH POC TILL EOS.
[2018-06-30 04:37] VITALS: BP 160/63
[2018-06-30 07:30] VITALS: BP 141/70
--- NOTE | 2018-06-30 11:56 | NUR ---
Assumed pt care at 7am.Pt in and out of bed with assist to urinate.Adequate u/o noted.Assessment completed.Pt more active and alert today.Up in chair for breakfast and good appetite noted.Tolerated meds.Dr Mckeon here,order noted.Pt in bed at present resting .Will continue to monitor.
[2018-06-30 16:00] VITALS: BP 14/56
--- NOTE | 2018-06-30 16:47 | NUR ---
CM CALLED PT'S SON TO DISCUSS POST ACUTE CARE STAY. CM LEFT VM. CM TO FOLLOW INDICATED WITH DC PLANNING.
[2018-06-30 20:06] VITALS: BP 163/64
--- NOTE | 2018-07-01 02:19 | NUR ---
PT SITTING IN CHAIR AT START OF SHIFT. ASSIST TO THE BSC AND TO THE BED X1. PT IN A GOOD MOOD SMILING. TOOK MEDS WITHOUT ANY DIFFICULTIES. ASKING ABOUT SON.CAN BE IMPULSIVE. WITH FORGETFULNESS AND CONFUSION.
[2018-07-01 05:17] LABS: HEMATOCRIT 29.6 % (37.0-47.0); HEMOGLOBIN 9.8 gm/dL (12.0-15.0); MCH 28.5 pg (26.0-34.0); MCHC 33.1 g/dL (28.0-37.0); MCV 86.3 fL (80.0-100.0); RBC 3.44 mil/uL (4.20-5.00); RDW 13.7 % (10.5-14.5); WBC 3.6 thou/uL (4.0-11.0)
[2018-07-01 05:26] LABS: CALCIUM 9.7 mg/dL (8.5-10.1); CREATININE 0.7 mg/dL (0.6-1.0); POTASSIUM 4.1 mmol/L (3.5-5.1)
[2018-07-01 05:48] VITALS: BP 145/72
[2018-07-01 08:44] VITALS: BP 168/57
--- NOTE | 2018-07-01 09:12 | NUR ---
Nutrition: Pt admitted for weakness, rhabdo, CAP. Seen for LOS. Hx of dementia, Vit D and B12 deficiency. Reports appetite is okay with 50% intake. Nsg reports pt ate really well yesterday. Admission wt on 06/25 showed 125 lbs, stable x3 years per wt hx. Requested updated wt. Last B12 lab was on 06/23 showing WNL. On Vit D supplement. EMR stated hypokalemia, current lab shows K+ WNL. Low nutrition risk.
--- NOTE | 2018-07-01 14:19 | NUR ---
Assumed pt care at 7am.Pt in and out of bed with assist x1.Transfered to chair at breakfast and was there for over one hour before left for bed.Pt tolerated meds. She refused working with occ therapy this afternoon.Received call from Dr Wilkinson later this afternoon,updates given.Pt might possibly dc to [facility] today.Pt in bed at present sound asleep without distress s/s.Bed and chair alarm in use for safety.Will continue to monitor.
--- NOTE | 2018-07-01 14:46 | NUR ---
CM SPOKE WITH PT'S SON KAMRON AND INDICATED THAT CARE TEAM ARE RECOMMENDING POST ACUTE CARE STAY PRIOR TO PT RETURN TO [facility]. HE INDICATED THAT REFERRAL COULD BE SENT TO [facility] FOR REVIEW FOR POSSIBLE ADMISSION. [facility] FAXED REFERRAL. AWAITING THEIR RESPONSE AND AUTH. CM TO FOLLOW INDICATED WITH DC PLANNING.
--- NOTE | 2018-07-01 15:36 | NUR ---
FAXED REFERRAL TO [facility] SPOKE WITH [facility]INKA IN ADM, SHE RECEIVED REFERRAL AND WILL REVIEW AND IF THEY CAN ACCEPT TO SUBMIT FOR AUTH. IF DC OVER WEEKEND FAX TO [phone] [facility] CALL [phone] FOR REPORT.
[2018-07-01 17:09] LABS: HSV 1 DNA Negative (Negative); HSV 2 DNA Positive (Negative)
[2018-07-01 20:00] VITALS: BP 156/66
[2018-07-02 04:33] VITALS: BP 121/67
[2018-07-02 07:20] VITALS: BP 117/52
--- NOTE | 2018-07-02 07:54 | NUR ---
ASSESSMENT COMPLETED.PT DENIED PAIN,N/V.REPOSITIONED WHILE IN BED.UP WITH ASSIST X1 TO BSC.FALL PRECAUTIONS MAINTAINED.REPORT TO AM NURSE.
[2018-07-02 15:52] VITALS: BP 140/69
--- NOTE | 2018-07-02 18:18 | NUR ---
NO CHANGE SINCE AM ASSESMENT. PT SLEEPY THIS AM. STARTED WAKING UP AROUND NOON. AMBULATED IN HALLWAY THIS AFTERNOON. PT UP IN CHAIR AT THIS TIME. WILL CONT. TO MONITOR.
[2018-07-02 20:57] VITALS: BP 134/55
[2018-07-02 22:05] LABS: ADENOVIRUS Negative (Negative); INFLUENZA A Negative (Negative); INFLUENZA B Negative (Negative); METAPNEUMOVIRUS Negative (Negative); PARAINFLUENZA 1 Negative (Negative); PARAINFLUENZA 2 Negative (Negative); PARAINFLUENZA 3 Negative (Negative); RHINOVIRUS Negative (Negative); RSV A Negative (Negative); RSV B Negative (Negative)
--- NOTE | 2018-07-02 22:31 | NUR ---
ASSUMED PT CARE 190. PT ALERT TO SELF. CONFUSED. FREQUENT REDIRECTING AND REORIENTING NEEDED. REASSESSMENT COMPLETE. VSS. WALKED WITH PT AROUND UNIT X1. PT TOLERATED ACTIVITY WELL. PT SLEEPING IN BED COMFORTABLY NOW. WILL CONTINUE POC UNTIL EOS.
[2018-07-03 04:51] LABS: ANION GAP 8 mmol/L (7-16); BUN 16 mg/dL (7-18); CALCIUM 9.1 mg/dL (8.5-10.1); CHLORIDE 104 mmol/L (98-107); CO2 29 mmol/L (21-32); CREATININE 0.8 mg/dL (0.6-1.0); GLUCOSE 96 mg/dL (74-106); MAGNESIUM 2.1 mg/dL (1.8-2.4); POTASSIUM 4.3 mmol/L (3.5-5.1); SODIUM 141 mmol/L (136-145); TROPONIN-I <0.06 ng/mL (<0.06)
[2018-07-03 05:06] VITALS: BP 119/52
[2018-07-03 05:53] LABS: HEMATOCRIT 28.5 % (37.0-47.0); HEMOGLOBIN 9.3 gm/dL (12.0-15.0); MCH 28.3 pg (26.0-34.0); MCHC 32.6 g/dL (28.0-37.0); MCV 86.7 fL (80.0-100.0); RBC 3.29 mil/uL (4.20-5.00); WBC 4.7 thou/uL (4.0-11.0)
[2018-07-03 07:32] VITALS: BP 116/57
--- NOTE | 2018-07-03 11:15 | NUR ---
ASSUMED CARE OF PT AT 0700. ASSESSMENT COMPLETED. ALERT TO SELF ONLY, PT CONFUSED AND FORGETFUL. HISTORY OF DEMENTIA NOTED. PT HAS FLAT AFFECT. REFUSED ALL AM MEDS. STATING SHE IS IN "LONG-TERM." ROOM AIR. DENIES SOA OR CHEST PAIN. CLEAR/DIM LUNGS. NO EDEMA. SKIN INTACT. RIGHT BUTTOCK RASH. BEDSIDE COMMODE WITH X1 ASSIST. CAN BE IMPULSIVE AT TIMES. FALL PRECAUTIONS IN PLACE. WILL CONTINUE TO MONITOR.
--- NOTE | 2018-07-03 13:39 | EKG ---
[place] [address] [facility] [place] [address] ELECTROCARDIOGRAM REPORT Name: ADONIS KEBEDE Room #: 419-P ADM IN M.R.#: [id number] ������������������ Admission: 06/25/18 ������������������ Attend Phys: Rashi Reilly MD Discharge: ������������������ Date of : 40 Report #: [id number] ����������������������������������������������������������������� [id number] THIS REPORT FOR: //name// [facility] Test Date: 2018-07-02 Test Time: 16:04:51 Pat Name: ADONIS KEBEDE Department: Room: 419 P Gender: F Supervisor Taping: : 1940 Requested By: Nicholas Wilkinson Order Number: [id number] MD: Devang Melgoza Measurements Intervals [place] Rate: 85 P: 25 SC: 140 QRS: -20 QRSD: 62 T: 80 QT: 456 QTc: 543 Interpretive Statements Sinus rhythm Nonspecific ST and T wave abnormality Prolonged QT interval Compared to ECG 06/25/2018 11:53:12 Prolonged QT interval now present Nonspecific change in the ST and T-wave segments Electronically Signed On 07-03-2018 13:39:29 CDT by Devang Melgoza [email or web address] ��������������������������������������������� <ELECTRONICALLY SIGNED> ���������������������������������������� By: Devang Melgoza MD, [facility] ��������������������������������������������� 07/03/18 1339 1604 1604 Devang Melgoza MD, [facility] /EPI
--- NOTE | 2018-07-03 13:48 | EKG ---
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: : 1940 Requested By: Nicholas Wilkinson Order Number: [id number] MD: Devang Melgoza Measurements Intervals [place] Rate: 70 P: 50 [place]: 144 QRS: -9 QRSD: 62 T: 75 QT: 385 QTc: 416 Interpretive Statements Sinus rhythm Nonspecific ST and T wave abnormality Compared to ECG 06/25/2018 11:53:12 No significant change was found Electronically Signed On 07-03-2018 13:47:55 CDT by Devang Melgoza [email or web address] ��������������������������������������������� <ELECTRONICALLY SIGNED> ���������������������������������������� By: Devang Melgoza MD, [facility] ��������������������������������������������� 07/03/18 1347 0639 8 Devang Melgoza MD, [facility] /EPI
[2018-07-03 19:49] VITALS: BP 117/57
--- NOTE | 2018-07-04 01:15 | NUR ---
ASSUMED CARE AT 1900, ASSESSMENT COMPLETED. PT DROWSY, DIFFICULT TO HEAR WHEN SHE ANSWERS QUESTIONS, COOPERATIVE WITH CARES; MADE A SINGLE BRIEF COMMENT ABOUT BEING LOCKED IN A SHELTER BUT IT WAS DIFFICULT TO UNDERSTAND. DENIES PAIN, NAUSEA, OR SOB. GAVE A SNACK OF ROYA CRACKERS AND APPLE JUICE. HAS BEEN SLEEPING THE REST OF THE SHIFT, NO OTHER CONCERNS, WILL CONTINUE TO MONITOR.
[2018-07-04 05:11] VITALS: BP 117/45
[2018-07-04 08:01] VITALS: BP 119/45
--- NOTE | 2018-07-04 12:38 | NUR ---
FAXED PT/OT NOTES FROM TODAY TO [facility] SPOKE WITH YINKA IN ADM. SHE RECEIVED NOTES AND WILL SUBMIT FOR AUTH. DCP TO FOLLOW.
--- NOTE | 2018-07-04 15:44 | NUR ---
CASE DISCUSSED WITH DR YUAN MULTIPLE TIMES TODAY. PT IS OUT OF NETWORK FOR 5N BUT HER ACUTE REHAB BENEFIT IS THE SAME FOR NETWORK & [facility]. SHE WOULD HAVE A CO-PAY OF $165 PER DAY FOR 5 DAYS. PT COULD GO TO SNF & HAVE 100% COVERAGE AT NETWORK FACILITY. DR YUAN ALSO WANTING DR ALARCON TO SEE PT & SEE IF SHE WOULD QUALIFY FOR ADMISSION AT [facility] WHERE DR ALARCON COULD CONTINUE TO FOLLOW PT & FURTHER REGULATE HER MEDICATIONS. PT HAS BEEN TO [facility] IN THE PAST ANS DR ALARCON HAS SEEN HER IN THE PAST aS WELL THIS ADMISSION. RECEIVED CALL FROM DR ALARCON & SHE DOES NOW THINK PT WOULD QUALIFY FOR [facility]. S/W LUBA IN THE CALL CENTER & FAXED FACE SHEET, H&P, DR ALARCON'S CONSULT WELL TODAYS PROGRESS NOTES FROM DR ALARCON, DR CELESTE & DR YUAN FROM YESTERDAY, MED LIST, EKG, LABS FOR THEIR REVIEW. AWAITING RESPONSE BACK FROM [facility]. ALSO JUST RECEIVED CALL FROM ROSALBA AT [facility] & PT'S INSURANCE IS DENYING A SKILLED STAY AT THIS TIME.
[2018-07-04 16:01] VITALS: BP 123/56
--- NOTE | 2018-07-04 16:58 | NUR ---
ASSUMED CARE OF PT AT 0700. ASSESSMENT COMPLETED. ALERT TO PERSON AND PLACE. DOES NOT EXHIBIT SUSPICIOUS OR PARANOID BEHAVIOR AT THIS TIME. PT TOOK ALL MEDS. PT WALKED TO BATHROOM AND VOIDED INSTRUCTED. ROOM AIR. NO SOA OR CHEST PAIN. DENIES PAIN. RIGHT BUTTOCK RASH. NO EDEMA. LOW INTAKE NOTED, PT REFUSES TO EAT AT MEALTIMES STATING NOT HUNGRY. LOOKING FOR PLACEMENT. WILL CONTINUE TO MONITOR.
--- NOTE | 2018-07-04 17:10 | NUR ---
FAXED POWER OF LIFTER DOCUMENT TO [facility] FOR THEIR REVIEW AND ANSWERED QUESTIONS FOR THEM. S/W SON KAMRON BY PHONE AND HE WOULD LIKE FOR DR YUAN TO CALL HIM. HE IS AGREEABLE TO HAVING [facility] REVIEW PT'S INFO FOR POSSIBLE ADMISSION THERE.
[2018-07-04 19:42] VITALS: BP 117/68
[2018-07-05 05:12] VITALS: BP 122/48
--- NOTE | 2018-07-05 05:22 | NUR ---
ASSUMED CARE AT 1900, ASSESSMENT COMPLETED. AT START OF SHIFT, PT ALERT, SMILING, TALKING WITH STAFF AND SON; AFTER THE SON LEFT, SHE QUICKLY BECAME LETHARGIC. ASSISTED PT UP TO BATHROOM USING GAIT BELT AND WALKER; SHE WAS VERY SLOW MOVING HERSELF OUT OF BED AND STANDING UP, REQUIRING FREQ CUES, WOULD NOT TURN WALKER ON HER OWN AND WOULD LET IT RUN INTO THE WALL. WAS HESITANT TO TAKE HER ONE PILL AT , STATING IT WAS TOO BIG AND SHE WOULD CHOKE ON IT; THE PREVIOUS SHIFT SHE HAD NO TROUBLE TAKING ANY PILLS, AND DIDN'T EXPRESS CONCERNS OF CHOKING ON A PILL. OFFERED APPLE SAUCE WITH PILL, WHICH HELPED. HAS SLEPT REMAINDER OF SHIFT, NO OTHER CONCERNS, WILL CONTINUE TO MONITOR.
[2018-07-05 07:25] VITALS: BP 103/47
--- NOTE | 2018-07-05 12:34 | NUR ---
Assumed pt care at 7am.Pt in bed resting and very sleepy.Assessment completed. vss.Assisted pt with tray set up .Pt fed self but poor appetite noted.Pt tolerated meds.Chair and bed alarm in use.Completed bed bath given.Pt in bed at present eating lunch. Will continue to monitor.
--- NOTE | 2018-07-05 14:44 | NUR ---
S/W VIKI AT [facility] TO CHECK ON BED AVAILABILITY AND THEY ARE STILL REVIEWING PT'S INFO. ANSWERED ADDITIONAL QUESTIONS. FOLLOWING.
[2018-07-05 16:20] VITALS: BP 113/48
--- NOTE | 2018-07-05 17:00 | NUR ---
RECEIVED CALL BACK FROM CHAMP AT [facility] & THEY STILL WILL NOT HAVE A BED TODAY AND ASKED I CALL BACK TOMORROW. NOTIFIED DR ALARCON AND ASKED HER TO ASSIST US IN GETTING A BED IF SHE IS ABLE. ALSO ASKED IF SHE WANTS [facility] HERE TO LOOK AT HER? AWAITING RESPONSE BACK.
--- NOTE | 2018-07-05 17:20 | NUR ---
RECEIVED CALL BACK FROM DR ALARCON & UPDated her that still no bed available at [facility]. SHE WILL SEE PT THIS CARMEN. WILL NEED TO CALL CHAMP IN AM AGAIN TO CHECK ON BED AVAILABILITY AT [facility].
[2018-07-05 20:00] VITALS: BP 126/52
--- NOTE | 2018-07-06 05:45 | NUR ---
ASSUMED CARE AT 1900, ASSESSMENT COMPLETED. PT ALERT AND PLEASANT THIS EVENING WHILE SON IN ROOM VISITING; ONCE HE LEFT PT QUICKLY BECAME DROWSY AND SLEPT MOST OF THE NIGHT. WHEN GIVING NIGHT MEDS, PT WAS RELUCTANT TO PULL HER ARM OUT FOR BETTER FLEXIBILITY AND HAD TO BE REPOSITIONED SO SHE WOULD TAKE THE CUP AND PILL HERSELF. PT REFUSED VITAL SIGNS THIS MORNING, TELLING OTHER SPORTS COACH OR INSTRUCTOR TO "GET OUT OF HERE." NO OTHER CONCERNS, WILL CONTINUE TO MONITOR.
[2018-07-06 06:03] LABS: HEMATOCRIT 27.8 % (37.0-47.0); HEMOGLOBIN 9.2 gm/dL (12.0-15.0); MCH 28.9 pg (26.0-34.0); MCHC 33.2 g/dL (28.0-37.0); MCV 87.2 fL (80.0-100.0); RBC 3.19 mil/uL (4.20-5.00); RDW 14.4 % (10.5-14.5)
[2018-07-06 06:23] LABS: CALCIUM 8.9 mg/dL (8.5-10.1); CREATININE 2.2 mg/dL (0.6-1.0); POTASSIUM 4.6 mmol/L (3.5-5.1)
[2018-07-06 07:45] VITALS: BP 113/60
--- NOTE | 2018-07-06 12:05 | NUR ---
Assessment completed,vss.Pt in bed very sleepy but arousable.Assisted with tray setup.Pt refused breakfast but took meds with apple sauce.Pt son called this am,updates given and pt also talked to him too.Chair and bed alarm in use for safety.Will continue to monitor.
--- NOTE | 2018-07-06 14:00 | NUR ---
[employer] Maintainer has spoken with the call center at [facility] x 2 today. They are awaiting confirmation of their senior discharges before accepting the pt. Care team updated. Will follow to finalize dc to dawna pacheco there if they can confirm a bed for today.
[2018-07-06 16:00] VITALS: BP 131/68
--- NOTE | 2018-07-06 16:14 | NUR ---
ON-GOING ASSESSMENT: CHRISTINE HAD A VM ON PHONE FROM FAHEEM AT [facility] STATING SHE HEARD WE ARE TRYING TO GET THE PATIENT TO AN [facility]PATIENT [facility]. SHE REPORTS THAT WITH PATIENTS INSURANCE SHE SHOULD BE ABLE TO GO TO ANY [facility] BECAUSE IT IS CONSIDERED AN EMERGENT ADMISSION. CONTACT FOR FAHEEM IF NEEDED IS . PHILIPP HAS BEEN WORKING WITH PATIENT AND FAMILY WELL ATTENDING. CHRISTINE WILL PASS THIS INFO ON TO PHILIPP.
[2018-07-06] MEDS ORDERED: TRAZODONE HCL50 MG PO (17:12)
[2018-07-06] MEDS ORDERED: LISINOPRIL10 MG PO ×2 (17:12→17:22)
[2018-07-06] MEDS ORDERED: DEPAKOTE SPRIN125 MG PO (17:12)
[2018-07-06] MEDS ORDERED: ACYCLOVIR 400400 MG PO (17:12)
[2018-07-06] MEDS ORDERED: ACETAMINOPHEN325 M1 PO (17:12)
[2018-07-06] MEDS ORDERED: MIRALAX17 GM PO (17:22)
[2018-07-06] MEDS ORDERED: ONDANSETRON HCL4 M2 PO (17:22)
[2018-07-06] MEDS ORDERED: PROTONIX 20 MG20 M1 PO (17:22)
[2018-07-06 20:13] VITALS: BP 143/70
--- NOTE | 2018-07-07 04:30 | NUR ---
ASSUMED PT CARE 0. PT ALERT TO SELF AND PLACE. REASSESSMENT COMPLETE. VSS. PT DENIES PAIN. IV DRESSING C/D/I, NO SIGNS OF INFILTRATION. PT TO RECEIVE 1L FLUID AND CONTINUE WITH DC TO BEHAVIORAL UNIT IN AM PER PHYSCIAN ORDERS. WILL CONTINUE POC UNTIL EOS.
[2018-07-07 04:53] VITALS: BP 122/56
[2018-07-07 07:17] LABS: CALCIUM 9.2 mg/dL (8.5-10.1); CREATININE 1.5 mg/dL (0.6-1.0); POTASSIUM 4.3 mmol/L (3.5-5.1)
[2018-07-07 07:41] VITALS: BP 124/56
--- NOTE | 2018-07-10 15:12 | D ---
[facility] [place] [address] DISCHARGE SUMMARY Name: ADONIS KEBEDE Room #: 419-P [facility] IN M.R.#: [id number] Admission: 06/25/18 ������������������ Attend Phys: Rashi Reilly MD Discharge: 07/07/18 ������������������ Date of : 40 Report #: [id number] THIS REPORT FOR: //name// CC: ROSELINE Wilkinson DATE OF SERVICE: 07/07/2018 SUMMARY OF HISTORY AND PHYSICAL: The patient presented to the Emergency Room on 06/25/2018, a day after having been discharged for treatment of community- acquired pneumonia. Her complaint was weakness. She was found to have the same tremor along with some bruising to her right hip and an elevated CPK that confirmed the history that she did fall in her bathroom, but she did not remember when. Her creatinine was elevated as well. She required intravenous fluid resuscitation and completion of her treatment for community-acquired pneumonia from her previous hospital stay. Additional information was that the facility where she lived had 4 residents that were being treated for acute influenza A. For this reason, she needed close observation to see if she developed those symptoms. SUMMARY OF HOSPITAL COURSE: She was admitted and placed on intravenous fluids. Her CPK fell steadily and returned to normal. She did have difficulty with agitation as well as her tremor. She was seen in consultation by Dr. Echols of the Psychiatry Service and her antipsychotic medications were adjusted. She did have an episode of agitated behavior, making it clear that she needed treatment. Old records were made available to show that she had been seen by a neurologist, Dr. Morgan Tracey, in 11/[address] Napoleon Millard, in 07/2016, at which time, there was no tremor and no signs of Parkinson's or extrapyramidal problems, indicating that those on her admission last week and currently had developed in the intervening time. She developed an outbreak that appeared herpetic in nature and a sacral dermatome on the right hip. It was tender. She was seen in Infectious Disease consultation by Dr. Mckeon and antivirals were administered, which led to the rapid resolution of the outbreak. Laboratory data indicated it was herpes simplex type 2, and she continued treatment for her community-acquired pneumonia. 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 As her quetiapine doses were increased and adjusted, she seemed to stop drinking. Her creatinine rula to 2.2, but after IV fluids overnight, dropped to 1.5 and she was felt sufficiently stable to be transferred to the [facility] [address] [place] [id number] DISCHARGE SUMMARY Name: ADONIS KEBEDE Room #: 419-P [facility].#: [id number] Admission: 06/25/18 ������������������ Attend Phys: Rashi Reilly MD Discharge: 07/07/18 ������������������ Date of : 40 Report #: [id number] There was a concern that she had an adverse reaction to carbidopa/levodopa for her tremors, with onset of paranoia. Paranoia also seemed to represent inadequate treatment with her quetiapine. In addition, it seemed like her cognitive dysfunction/dementia had been steadily progressing. I was able to get her to walk with me and she would walk more than 300 feet as she circled the entire nursing floor, but she would decline request by the physical therapist to walk. I was able to get her to eat. I did have difficulty getting her to drink water. Several different doses and dosing schedules of quetiapine were not successful in the balance of adequate sleep, suppression of paranoid symptoms, and staying awake enough to eat and drink and participate in therapies. Her tremor also became more noticeable. At this point, it was felt that a [facility] admission was indicated for further adjustment and treatment of the extrapyramidal symptoms which may be related to her medications. Her quetiapine was discontinued and depakote started. She was transferred to the [address] [place] [address] Unit. Her potassium was replaced and she no longer needed to take supplemental potassium. Her blood pressure was no longer elevated, Her lisinopril was stopped in the face of her rising creatinine, and she did not need it further. LABORATORY DATA: On admission, potassium was low at 3.1 and was replaced. Several days prior to transfer, her BUN rula from 8 to 30 and her creatinine from 0.8 to 2.2. After IV fluids overnight, the creatinine dropped to 1.5 and the BUN dropped to 27. Her AST remained mildly elevated at 69. Her ALT was not elevated. Magnesium remained in the normal range. Her admitting CPK was elevated at 1363, the next day it was 690 and subsequently, it was within the normal range. Troponins were negative. Free T4 was normal at 0.8. TSH was normal at 0.75. WBCs were lowish at 3.7 and 5.0 at transfer. Hemoglobin was low at 9.3. MCV was normal at 86. Sed rate was 30 and was 50 on repeat. DNA profile was negative, with an anti-DSDNA anti-Milian and anti-GRADE FOREMAN. IgE, IgA and IgM levels were normal. Immunoelectrophoresis showed an IgG monoclonal protein with kappa light chain present. Folate was normal at 20.6. Vitamin B12 normal at 349. Varicella IgG was elevated at 1191. Aldolase was mildly elevated at 11.1. Erythropoietin was high at 19.9. Methylmalonic acid was normal at . Herpes simplex type 1 was negative. Herpes simplex type 2 was positive. Urinalysis showed a trace of blood, but culture was negative (she was taking [facility] [address] [place] [address] DISCHARGE SUMMARY Name: ADONIS KEBEDE Room #: 419-P [facility].#: [id number] Admission: 06/25/18 ������������������ Attend Phys: Rashi Reilly MD Discharge: 07/07/18 ������������������ Date of : 40 Report #: [id number] antibiotics). Stool for hidden blood was negative. Iron was low at 43. CRP was elevated at 28.8 and 21.8. Serum protein electrophoresis showed a M-spike of 0.5 g/dL. 1. DISCHARGE DIAGNOSES: 2. 1. 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 3. 2. Progressive behavior disorder. 4. 3. Extrapyramidal symptoms/signs - could be from her antipsychotic medications or perhaps Parkinson's disease. 5. 4. Dehydration as her medications were increased towards the end of her hospital stay and she hardly drank any fluids. This responded to an IV bolus of fluid indicating good kidney function. 6. 5. Recurrent herpes type 2 episode, responded to resumption of antiviral medication. Note that in the past, she had been on suppressive therapy continually. 7. 6. Mild iron-deficiency anemia, with low iron and elevated erythropoietin. 8. 7. Isolated, elevated AST/SGOT. 9. 8. She was no longer hypertensive. 10. 9. Recent community-acquired pneumonia - completed treatment. 11. 10. History of gastroesophageal reflux disease. 12. 11. Hypothyroidism, adequately replaced. 13. 12. Hysterectomy. 14. 13. History of depression and anxiety. 15. 14. Vitamin D deficiency. 16. 15. Recurrent nightmares. 17. 16. Atrophic vulvar dermatitis, treated with Estrace cream. 18. 17. History of vitamin B12 deficiency with demonstration of adequate status. 18. 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 PLAN: She is transferred to the [address] [place] [address] Unit under the care of Dr. Melendrez. He indicates that it is possible for her to receive IV fluid boluses limited to 4 hours at a time. Consideration to resuming her Estrace vaginal cream if she becomes symptomatic. Consideration to oral iron pills once she begins to eat readily. MEDICATIONS: Aspirin 81 mg daily. Levothyroxine 0.025 mg daily. Vitamin D 1000 units daily. Estrace vaginal cream daily. Donepezil 10 mg daily. Memantine 10 mg daily. Loratadine 10 mg daily for allergies. Acyclovir 400 mg twice daily. Divalproex 125 mg sprinkles 3 times daily. Trazodone 50 mg at bedtime, may repeat once, as needed for sleep. MiraLax twice daily as needed for constipation. Pantoprazole 20 mg daily in the morning. Ondansetron 4 mg every 4 hours as needed for nausea. She will be followed by the Internal Medicine Service in consultation while on [address] [place] [id number] DISCHARGE SUMMARY Name: ADONIS KEBEDE Room #: 419-P [facility] IN M.R.#: [id number] Admission: 06/25/18 ������������������ Attend Phys: Rashi Reilly MD Discharge: 07/07/18 ������������������ Date of : 40 Report #: [id number] [place]. In conversation with her son, he told me that it is clear that her dementia is progressing. He is now in the process of looking for a Memory Care Unit for her to go to after she finishes on [address] [place] [address]. We will also discuss advanced directives and code status with him. ��������������������������������������������� <ELECTRONICALLY SIGNED> ���������������������������������������� By: Nicholas Wilkinson MD ��������������������������������������������� 07/10/18 [id number] [id number] Nicholas Wilkinson MD /nt
== END 2018-07-07 11:12 | DRG 57 ==
LOC: ER 11:36 → EROBS 14:51 → 4E 14:51 → ENTRNSPT 07-07 10:54 → EDTRNSPTSTS 07-07 11:02 → 4E 07-07 11:12
PROVIDERS: Emergency Medicine; Internal Medicine; ADMIT Internal Medicine
DX: G25.79 Other drug induced movement disorders (principal); F02.81 Dementia in other diseases classified elsewhere, unspecified severity, with behavioral disturbance; N17.9 Acute kidney failure, unspecified; A60.9 Anogenital herpesviral infection, unspecified; T42.8X5A Adverse effect of antiparkinsonism drugs and other central muscle-tone depressants, initial encounter; B00.9 Herpesviral infection, unspecified; I10 Essential (primary) hypertension; K21.9 Gastro-esophageal reflux disease without esophagitis; E03.9 Hypothyroidism, unspecified; G20 Parkinson's disease; F32.9 Major depressive disorder, single episode, unspecified; K76.9 Liver disease, unspecified; D72.819 Decreased white blood cell count, unspecified; G30.9 Alzheimer's disease, unspecified; L30.8 Other specified dermatitis; E55.9 Vitamin D deficiency, unspecified; D50.9 Iron deficiency anemia, unspecified; E86.0 Dehydration; F41.9 Anxiety disorder, unspecified; Z60.2 Problems related to living alone; E87.6 Hypokalemia; M81.0 Age-related osteoporosis without current pathological fracture; Z79.82 Long term (current) use of aspirin; Z90.710 Acquired absence of both cervix and uterus; Z91.041 Radiographic dye allergy status; Z91.013 Allergy to seafood; Z79.899 Other long term (current) drug therapy; T79.6XXA Traumatic ischemia of muscle, initial encounter; W18.39XA Other fall on same level, initial encounter
CPT/HCPCS: 10084; 10783

== ENCOUNTER 2018-07-06 15:22 | Inpatient (IN) | payer MEDICARE ==
[~2018-07-06] VITALS: Ht 101.5 cm; Wt 49.1 kg
[2018-07-06] MEDS ORDERED: DEPAKOTE SPRIN125 MG PO (17:12)
[2018-07-06] MEDS ORDERED: TRAZODONE HCL50 MG PO (17:12)
[2018-07-06] MEDS ORDERED: ACYCLOVIR 400400 MG PO (17:12)
[2018-07-06] MEDS ORDERED: LISINOPRIL10 MG PO ×2 (17:12→17:22)
[2018-07-06] MEDS ORDERED: ACETAMINOPHEN325 M1 PO (17:12)
[2018-07-06] MEDS ORDERED: MIRALAX17 GM PO (17:22)
[2018-07-06] MEDS ORDERED: PROTONIX 20 MG20 M1 PO (17:22)
[2018-07-06] MEDS ORDERED: ONDANSETRON HCL4 M2 PO (17:22)
--- NOTE | 2018-07-07 11:34 | NUR ---
Assumed pt care at 7am.Assessment completed.vss.Pt in bed very quiet.Assisted with tray setup.Pt only took meds with apple sauce and sips of juice but refused breakfast.Received call from Dr Wilkinson,updates given and later from [facility] doctor .At 1130,pt left per wc to [facility] .
[2018-07-07 12:00] VITALS: BP 129/80
--- NOTE | 2018-07-07 14:07 | NUR ---
PT IS A DIRECT ADMIT TO [facility] [place] [address] [place] [address] AT [facility]. REPORT WAS GIVEN TO THIS NURSE FROM CHARGE NURSE RODRICK. PT IS AOX4 , ALERT, AWAKE, ORIENTED TO SELF AND PLACE. DISORIENTED TO DATE, SITUATION. SHE DENIES THE REASON FOR HIS ADMISSION. SHE STATES THAT SHE LIVES ALONE, AND THAT HER SON IS HER SUPPORT SYSTEM AT THIS MOMENT. VSS. ADMISSION ASSESSMENT AND HISTORY PERFORMED. PT WAS ABLE TO ANSWER MOST QUESTIONS BUT PT IS VERY FORGETFUL AND IN DENIAL. ADMISSION PACKAGE GIVEN TO PT. PT ATE LUNCH PARTIALLY WITH NURSE ASSISTANCE. POOR APPETITE NOTICED. PT THEN WENT STRAIGHT TO HER ROOM AFTER LUNCH TIME AND IS PRESENTLY RESTING IN BED. DENIES PAIN, N/V, ANY SUICIDAL IDEATION NOW OR IN THE PAST. SKIN ASSESSMENT PERFORMED. PT SKIN IS INTACT. ADMITING SAW PT AND NEW ORDERS IN CHART. PT CAME ALONE, NO FAMILY MEMBER PRESENT. PERSONAL INVENTORY FILLED OUT. SEE CHART. WILL CONTINUE TO MONITOR PT
[2018-07-07 20:12] VITALS: BP 145/89
--- NOTE | 2018-07-07 23:29 | NUR ---
PATIENTS CARES WERE ASSUMED AT SHIFT CHANGE. PATIENT WAS ASSESSED AND MEDS WERE PASSED. HOURLY ROUNDING WAS DONE AND PATIENT DID APPER THAT THEY WERE SLEEPING. THE BED IS IN A LOW AND LOCKED POSITION. THE ALARM IS ON. PATIENT CONTINUES TO BE SOFT SPOKEN. ENJOYED VISITING WITH NURSING THIS SHIFT.
[2018-07-08 05:50] LABS: HEMATOCRIT 28.3 % (37.0-47.0); HEMOGLOBIN 9.3 gm/dL (12.0-15.0); MCH 28.5 pg (26.0-34.0); MCV 86.3 fL (80.0-100.0); RBC 3.28 mil/uL (4.20-5.00); RDW 14.2 % (10.5-14.5); WBC 4.8 thou/uL (4.0-11.0)
[2018-07-08 05:56] LABS: CALCIUM 9.3 mg/dL (8.5-10.1); CREATININE 1.2 mg/dL (0.6-1.0); POTASSIUM 4.9 mmol/L (3.5-5.1)
--- NOTE | 2018-07-08 09:29 | H ---
[facility] [place] [address] HISTORY AND PHYSICAL Name: ADONIS KEBEDE Room #: 518B-B ADM IN M.R.#: [id number] Admission: 07/07/18 ������������������ Attend Phys: Zhao Melendrez DO Discharge: ������������������ Date of : 40 Report #: [id number] THIS REPORT FOR: //name// CC: Zhao Wilkinson DATE OF SERVICE: 07/07/2018 ATTENDING PHYSICIAN: Zhao Melendrez DO. SOURCE OF INFORMATION: Chart review, discussion with her son yesterday, exchange of text with Dr. Echols, discussion with adoption social worker and a brief interview with the patient. REPAIRER HELPER: Nicholas Wilkinson MD. REASON FOR ADMISSION: Paranoia, confusion, refusal to take medication, concern for poor medication response. HISTORY OF PRESENT ILLNESS: This is a 78-year-old black female who had been admitted initially to the [facility] for some evaluation after a fall, possible rhabdomyolysis, dehydration issues like this. She had been on Dr. Wilkinson's service. From the notes that Dr. Echols left, she has a history of dementia, having difficulty with wandering. She has been in assisted living facility, doing relatively well. Dr. Wilkinson noticed the patient having a tremor, was not having it before and Dr. Echols had seen the patient a few years prior and did not have a tremor at that time. The patient has been confused, memory difficulties, calm and polite in the interview. ALLERGIES: IODINE AND SHELLFISH. Interview with patient, she has gross poverty of speech. She denied pain, was not oriented to date or specifically to place. The patient was interested in being helped as she had general reality she was ill. PAST MEDICAL HISTORY: Includes pneumonia, hypertension, gastroesophageal reflux disease, hypothyroidism and vitamin D deficiency. 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 MEDICATIONS: Prior to her medical admission include acetaminophen, Aricept, Namenda, Zyprexa, cefuroxime axetil, loratadine, Mucinex, Nexium, aspirin, vitamin D3, acyclovir, levothyroxine, lisinopril, citalopram, hydroxyzine, [facility] [address] [place] [address] HISTORY AND PHYSICAL Name: ADONIS KEBEDE Room #: 518B-B [facility] IN ..#: [id number] Admission: 07/07/18 ������������������ Attend Phys: Zhao Melendrez DO Discharge: ������������������ Date of : 40 Report #: [id number] estradiol. FAMILY HISTORY: Unable to be obtained. SOCIAL HISTORY: The patient is . Her DPOA is the son named Antonio. SUBSTANCE USE HISTORY: Nonsmoker, nondrinker. REVIEW OF SYSTEMS: Increased tremor, denied problems. Otherwise, due to her dementia comprehensive review of system was not obtainable. LABORATORY DATA: EKG done in the Emergency Room showed normal sinus rhythm, nonspecific ST changes laterally and compared to an EKG of 06/21/2018 found to be unchanged. Urinalysis done in the ER showed 3-10 rbc's, 1+ dipstick blood, ketones measured 2+, protein was trace, urine bacteria were 1-9 and labeled as few, NT-proBNP was 454. Chemistry showed a CPK of 1363, stable BUN and creatinine, AST was elevated at 69, otherwise liver enzymes were normal. CBC: The patient had hemoglobin 9.3, which is stable from prior hospitalization. White count was 3700 and no sign of infection. Total protein 6.9, albumin 3.5. Apparently at that time, there was a serum protein and immunoelectrophoresis pending. Chest x-ray done in the ER shows a benign-appearing chest x-ray. She was diagnosed with rhabdomyolysis, recent pneumonia completely treated, general debility and admitted medically. The patient had a supportive course, although her chemistries between I believe 07/04/2018 and 07/06/2018 showed a bump of creatinine from 0.8 to 2.3, so she was kept an extra night for IV hydration. The patient does require prompting when feeding. Additionally, microbiology from 06/21/2018 showed a negative blood culture. There were no apparent blood or urine cultures in this admission. PHYSICAL EXAMINATION: VITAL SIGNS: Temperature 36.3, pulse 111, respirations 18, BP 145/89, O2 sat 95%. GENERAL: The patient was ambulatory with cautious gait and did not require an assistive device. MENTAL STATUS EXAM: This is a well-developed, but disheveled black female appearing at least stated age. Attention limited. Concentration limited. Speech slow, deliberate, engaged in basic conversation. Slight psychomotor retardation with psychomotor agitation. I did not observe a clear tremor today. Denied auditory, visual, or tactile hallucinations. Denied hopelessness, helplessness. Denied homicidal intent or plan. Memory not formally tested today, but is known to be impaired. Insight is limited. Judgment limited. [facility] [address] [place] [address] HISTORY AND PHYSICAL Name: ADONIS KEBEDE Room #: 518B-B ADM IN M.R.#: [id number] Admission: 07/07/18 ������������������ Attend Phys: Zhao Melendrez DO Discharge: ������������������ Date of : 40 Report #: [id number] Fund of knowledge is below average. IMPRESSION: A 78-year-old female brought up from the medical floor for further evaluation of her medications and to control behaviors. DIAGNOSES: Major neurocognitive disorder with behavioral disturbance, nonspecific tremor appear to be resolving, a number of medical comorbidities including hypothyroidism and herpes. PLAN: At this time, we will minimize unnecessary medications. I need to complete a SLUMS on her as her dementia may be too advanced to benefit from cognitive enhancers. At the moment, she is not appearing paranoid. Her Depakote dose came in very low at 125 mg 3 times a day, so I went ahead and increased it to 375 mg twice a day. She will need a level for that. We will have to speak with her son further and find out exactly what her level of care is. I would think it should have a memory care component even if she is in denial. ESTIMATED LENGTH OF STAY: 7-10 days. Billing [id number] as I had a lot of information already provided as noted put into this evaluation. STRENGTHS: Supportive family. WEAKNESSES: Advancing age, dementia and medical comorbidities. ��������������������������������������������� <ELECTRONICALLY SIGNED> ���������������������������������������� By: Zhao Melendrez DO ��������������������������������������������� 07/08/18 0929 19 2329 Zhao Melendrez DO /nt
--- NOTE | 2018-07-08 11:15 | NUR ---
PHILIPP spoke with the son cory concerning pt care. SW schedule appointment for July 11, 2018.
--- NOTE | 2018-07-08 16:54 | NUR ---
PATIENT HAS BEEN UP ON UNIT - COMPLETED 50% OF HER BREAKFAST BUT REFUSED LUNCH. MINIMAL RESPONSE WHEN QUESTIONING PATIENT - AFFECT FLAT AND MOOD SOMEWHAT DETACHED. OT ARRIVED TO ASSESS PATIENT ON ABILITY TO BATH ONESELF - SHE ASKED STAFF WHETHER SHE WAS SENT BY GOD - AND MADE STATEMENT THAT SHE WANTED TO . OT INFORMED ATTENDING NURSE OF STATEMENT - WHEN APPROACHED SHE DENIED STATEMENT MADE. PATIENT HAD FAMILY VISITOR AND IT WENT WELL. ATE DINNER
[2018-07-08 21:01] VITALS: BP 126/81
--- NOTE | 2018-07-09 02:02 | NUR ---
Blunted affect noted during 1;1-speech soft and hesitant. Describes mood as "sad" stating "I don't remember my son Antonio coming to visit but i think he did" Did take hs meds in applesauce and completes hs cares with verbal cueing from nursing staff. Trazadone 50mg given po prn with Hs meds,awake and restless using restroom at 0100 and initally states would take repeat on trazaone 50mgpoprn but she staff reapproached with medication states "i don't think i need it"
[2018-07-09 07:20] VITALS: BP 109/57
--- NOTE | 2018-07-09 09:29 | NUR ---
0730: Report rec from noc shift, care assumed. Ambulatory with walker to DR, gait steady/slow. Denies pain or discomfort at this time. Feeds self with set-up assist, takes meds in yogurt or pudding, no swallowing difficulty noted. VS stable, mood is calm and cooperative @ this time.
[2018-07-09 19:37] VITALS: BP 136/73
[2018-07-09 20:55] VITALS: BP 136/73
--- NOTE | 2018-07-10 04:03 | NUR ---
PT QUIET AND CALM AT [facility] OF SHIFT. CONFUSED, BUT ABLE TO CONSUME HS SNACK AND MEDS WITH APPLE SAUCE. NO DIFFICULTY SWALLOWING. OUT OF BED AT 2200, AND NEEDED TO BE SHOWN HOW TO RETURN TO ROOM. SLEPT WELL THROUGH THE NIGHT.
--- NOTE | 2018-07-10 09:01 | NUR ---
ASSUMED PT CARE AT 0700-PT REQUIRED MUCH PROMPTING TO GET OUT OF BED & TO EAT BREAKFAST IN DAYROOM. PT REQUIRED PROMPTING TO TAKE AM MEDS IN APPLESAUCE, WAS ABLE TO SWALLOW MEDS IN APPLESAUCE W/O DIFFICULTY. ATE POORLY FOR AM MEAL (10%). FLUIDS ENCOURAGED. AFFECT GENERALLY FLAT, OCCAS. SPONTANEOUS SMILE. NO AGGRESSIVE BEHAVIOR NOTED. NO COMPLAINTS OF PAIN VOICED. NO ACUTE DISTRESS NOTED. ASSISTED W/AM CARE. SITS ALONE IN DAYROOM, QUIET/SOFT SPOKEN, MINIMAL SOCIAL INTERACTION. UP AD FLORECITA INDEPENDENTLY WITH SLOW STEADY GAIT. CONTINUE TO MONITOR THROUGHOUT SHIFT.
[2018-07-10 11:09] VITALS: BP 119/64
--- NOTE | 2018-07-10 15:37 | NUR ---
REQUIRED MUCH PROMPTING TO LEAVE HER ROOM FOR MEALS. GIVEN ENSURE FOR LUNCH PT WOULD NOT EAT LUNCH. AFFECT FLAT, SAD, APPEARS DEPRESSED. "I AM NERVOUS." PT QUESTIONED WHAT SHE IS NERVOUS ABOUT, "JUST OF WHERE MY LIFE IS GOING, DOESN'T LOOK GOOD." WHEN QUESTIONED PT WHAT THAT MEANT SHE DID NOT ELABORATE. PT SAT IN DAYROOM FOR A FEW MINUTES, SAT QUIETLY, STARING, SMILED INTERMITTENTLY AT TIMES, STAFF ATTEMPTED TO ENGAGE IN CONVERSATION W/PT W/O SUCCESS. NO ACUTE DISTRESS. PT IN ROOM, LYING QUIETLY IN BED. CONTINUE TO MONITOR THROUGHOUT SHIFT.
[2018-07-10 16:06] LABS: HEMATOCRIT 33.9 % (37.0-47.0); MCH 28.1 pg (26.0-34.0); MCHC 32.4 g/dL (28.0-37.0); MCV 86.6 fL (80.0-100.0); RBC 3.92 mil/uL (4.20-5.00); RDW 14.3 % (10.5-14.5); WBC 4.6 thou/uL (4.0-11.0)
[2018-07-10 16:22] LABS: ALBUMIN 4.2 g/dL (3.4-5.0); CALCIUM 10.1 mg/dL (8.5-10.1); CREATININE 1.2 mg/dL (0.6-1.0); POTASSIUM 5.2 mmol/L (3.5-5.1); TOTAL BILIRUBIN 0.3 mg/dL (<0.1-1.0); TOTAL PROTEIN 7.9 g/dL (6.4-8.2)
--- NOTE | 2018-07-10 16:26 | NUR ---
RECEIVED A CALL FROM NIKOLE IN LAB NOTING PT PLATELET COUNT IS [id number] [phone] 07/10/18. PLATELET COUNT IS ELEVATED FROM [id number] 07/08/[address] CRUZ ([phone]) ANSWERING SERVICE NOTIFIED TO PAGE HIM. AWAITING RETURN CALL TO INFORM PROVIDER.
--- NOTE | 2018-07-10 16:49 | NUR ---
PT IN DAYROOM VISITING W/FAMILY -FAMILY ATTEMPTING TO ENGAGE -PT SITTING QUIETLY W/MINIMAL INTERACTION. NO ACUTE DISTRESS NOTED.
--- NOTE | 2018-07-10 18:37 | NUR ---
UP IN DAYROOM W/PEERS. SMILED AT STAFF, PLEASANT AND COOPERATIVE - ATTEMPTING TO DO A WORD SEARCH. NO ACUTE DISTRESS NOTED.
[2018-07-10 19:31] VITALS: BP 146/83
--- NOTE | 2018-07-10 21:12 | NUR ---
Pt smiling and sitting in day room. Pt fed self ice cream, compliant wtih meds. Pt requested to goto bed and assisted. Gait steady but slow.
[2018-07-11 07:30] VITALS: BP 91/58
[2018-07-11 08:00] VITALS: BP 91/58
--- NOTE | 2018-07-11 08:15 | NUR ---
PT NOT EATING BREAKFAST. PT NEEDS HELP WITH EATING. PT DIDN'T OPEN EYES THIS AM. PT APPEARS TO BE SLEEPY. STAFF STATED SHE ATE 5% YESTERDAY.
--- NOTE | 2018-07-11 09:00 | NUR ---
ADM MEDICATION CRUSHED AND IN APPLESAUCE. PT DIDN'T WANT TO OPEN MOUTH, GAVE SMALL AMOUNT AT A TIME.
--- NOTE | 2018-07-11 10:15 | NUR ---
PT GETTING A SHOWER AT THIS TIME.
--- NOTE | 2018-07-11 12:30 | NUR ---
PT WALKED BACK TO ROOM TO REST. PHYSICAL THERAPY WORKING WITH PT AND RECOMMENDED HER TO USE ROLLING WALKER.
[2018-07-11 13:50] VITALS: BP 91/53
[2018-07-11] MEDS ORDERED: TYLENOL325 MG PO (16:01)
[2018-07-11] MEDS ORDERED: ZIAGEN 300 MG300 MG PO (16:04)
--- NOTE | 2018-07-11 16:06 | NUR ---
CARLOS EDUARDO met with pt family concerning Medicaid application, and memory care setting. CARLOS EDUARDO explained that pt is suffering from Major Neurocognitive Disorder. Pt is need a memory care unit to help with structure. CARLOS EDUARDO provided a list of nursing facility, and contact information to assist with pt referral. Carlos Eduardo will follow-up with the family concerning placement on Wednesday, July 13, 2018.
--- NOTE | 2018-07-11 16:30 | NUR ---
PT SON KAMRON WAS HERE, HE IS ENCOURAGEING HIS MOTHER TO EAT AND DRINK. PT STATED SHE WAS TIRED AND WANTED TO GO TO BED. NURSE ESCORTED PT TO BATHROOM AND BACK TO DINNING ROOM.
[2018-07-11 19:40] VITALS: BP 130/62
--- NOTE | 2018-07-11 21:58 | NUR ---
ASSUMED CARE OF THE PT AT 1915PM. ALERT ET ORIENTED X 1. WALKS WITH A STEADY GAIT. TOOK HER MEDICATIONS WITHOUT ANY DIFFICULTY. DENIES PAIN AT THIS TIME. DENIES ANXIETY AND DEPRESSION, SI/HI/A/V HALLUNICATIONS. REMAINS ON 12 MINUTE CHECKS FOR HER SAFETY.
--- NOTE | 2018-07-12 02:38 | NUR ---
THE PT TOOK A SLEEPING PILL CRUSHED IN APPLESAUCE EARLY THIS AM. APPEARS TO BE SLEEPING AT THIS TIME, RESP., EVEN, AND UNLABORED.
--- NOTE | 2018-07-12 06:26 | NUR ---
THE PT SLEPT 8 HOURS LAST NIGHT.
[2018-07-12 09:31] VITALS: BP 112/52
--- NOTE | 2018-07-12 16:39 | NUR ---
PATIENT IS ALERT, UP AND OUT ON THE DAY ROOM FOR BREAKFAST AND LUNCH, APPETITE POOR, HAD SOME SIPS OF ENSURE. PATIENT TOOK HER MEDICATION CRUSHED IN APPLE SOURCE WITHOUT DIFFICULT. PT/OT WORKED WITH RIA TODAY, SHE TOLERATED THERAPY WELL. PATIENT HAD BOWEL MOVEMENT THIS PM. PATIENT DENIES SUICIDAL AND HOMOCIDAL IDEATION. PATIENT HAS INTERMITTENT CONFUSION, AMBULATE WITH SLOW, SLIGHTLY UNSTEADY GAIT. PATIENT DENIES HAVING PHYSICAL PAIN, WILL MONITOR FOR SAFETY.
[2018-07-12 20:21] VITALS: BP 122/69
--- NOTE | 2018-07-12 22:36 | NUR ---
ASSUMED CARE OF THE PT AT 191 PM. THE PT WAS LYING IN BED, ALERT TO PERSON ONLY, PLEASANTLY CONFUSED. DENIES SI, HI, DEPRESSION AND ANXIETY. LUNGS CLEAR BILATERALLY, RESP., EVEN, AND UNLABORED. +BS HEARD IN ALL 4 QUADRANTS. DENIES PAIN AT THIS TIME. REMAINS ON 12 MINUTE CHECKS.
[2018-07-13] MEDS ORDERED: LIDOCAINE HCL120 GM (03:37)
--- NOTE | 2018-07-13 05:32 | NUR ---
THE PT HAS BEEN UP AND DOWN A FEW TIMES DURING THE GRAPHIC ENGINEER. NO DISTRESS NOTED.
--- NOTE | 2018-07-13 06:36 | NUR ---
THE PT SLEPT 7 HOURS LAST NIGHT.
[2018-07-13 07:00] VITALS: BP 109/51
[2018-07-13 10:00] VITALS: BP 109/51
--- NOTE | 2018-07-13 10:00 | NUR ---
PT HAS BEEN IN BED THIS AM AND REFUSED BREAKFAST. PT TOOK MEDS VIA CRUSHED VIA PUDDING. PT TOOK MEDS WITHOUT ISSUES. PT STATED THAT SHE WANTS TO EAT CHOCOLATE CHIP COOKIES. NOTICED THAT THERE WAS A COOKIE WRAPPED AT BEDSIDE. PT ATE THAT.
--- NOTE | 2018-07-13 12:30 | NUR ---
PT OUT EATING LUNCH WITH REST OF PATIENTS.
[2018-07-13 19:26] VITALS: BP 131/69
[2018-07-13 22:48] VITALS: BP 131/69
--- NOTE | 2018-07-14 03:52 | NUR ---
PT QUIET AND CONFUSED THIS PM. IN BED AT BEGINNING OF SHIFT, BUT UP AND WANDERING SEVERAL TIMES. TOOK HS MEDS WITH PUDDING, CRUSHED MEDS. EVENTUALLY SETTLED AND SLEPT WELL THROUGH THE NIGHT.
[2018-07-14 06:08] LABS: CALCIUM 9.3 mg/dL (8.5-10.1); CREATININE 1.3 mg/dL (0.6-1.0); POTASSIUM 4.8 mmol/L (3.5-5.1)
--- NOTE | 2018-07-14 09:33 | NUR ---
[id number]: Report rec. from [facility] shift, care assumed. Pt assisted with ambulation to DR for a.m. meal. Hesitant to go to DR, encouragement and assistance given with positive results. Feeds self with set-up assist, appetite poor. Takes meds with no swallowing difficulty. Particpated in group with hesitance and re-direction, follows direction, cooperates with staff. No distress noted.
[2018-07-14 20:17] VITALS: BP 104/49
[2018-07-14 21:26] VITALS: BP 104/49
--- NOTE | 2018-07-15 01:18 | NUR ---
PT QUIET AND CONFUSED, BUT COOPERATIVE. IN ROOM EARLY IN EVENING. UP TO BR WITH ASSIST. TOOK HS MEDS IN PUDDING WITH NO PROBLEM. DID REFUSE POLYGLYCOL. REFUSED TO DRINK SOLUTION. SLEPT WELL THROUGH THE NIGHT TO THIS POINT.
[2018-07-15 07:00] VITALS: BP 93/44
--- NOTE | 2018-07-15 14:04 | NUR ---
Recreational Therapy Weekly Progress Note Date of Admission: 07/07/18 Date of Activity Therapy Assessment: 07/10/18 Activity Goal: Patient will participate in 1 recreational therapy group per day until discharge. Initial Goal: Increase socialization to aid in development of communication and social skills. Weekly progress towards goal: On track Group participation level: Minimal Behaviors observed: Pt continues to be reserved and quiet. Pt often requests to go to bed rather than participating in group. She participates in 1 group per day minimum with little engagement. Plan: No change towards goal
--- NOTE | 2018-07-15 15:44 | NUR ---
PSYCHOSOCIAL ASSESSMENT Diagnosis: MAJOR NEUROCOGNITIVE D/O W/ BEHAVIORAL DISTURBANCE Admit Date: 07/07/18 Psychiatrist: BENJAMIN Symptoms associated with current admission: Violence/aggression Paranoid ideation Appetite change Hallucinations Presenting problems: Pt was shown aggression towards staff, and peers. Precipitating Factors: Non-compliance psychothx Change living environment Comments: Pt was living in assisted living facility but needs a memory care unit for LTC. History of High Risk Behavors: Hx violence/aggression Suicide Risk Factors: D A-Signs of alcohol/substance abuse w/ suicide ideation B-Recent suicidal thoughts or attempts C-Recent thoughts or attempts of harming someone else D-Altered mental status due to psychiatric/chem dep etiology E-The behavior exists - add comment PSYCHIATRIC HISTORY Age of onset: 70 Prior hospitalizations: 1-2 times hospitalized Hospital names and dates, if available: [facility] Most Recent Outpatient HX: Additional information: Legal Status: Voluntary Guardian/Conservatorship type: DPOA Contact name: Antonio Christensen Contact phone: [phone] Other: Other Name: Phone: Other legal issues: (Arrests/convictions Current Status) None P.O. Name and Phone #: FAMILY HISTORY Place of : [place] Raised in: [place] # Siblings & order: Pt has two sibilings & youngest Describe relationships within family of origin: Pt is close to her sibilings, and son Any psychiatric or substance abuse problems within family of origin: Y Has patient been sexually or physically abused, neglected or been taken advantage of financially? N Has the abuse been reported? N Other pertinent family information: Marital history/significant relationships: Domestic violence: N Children ages & who is caring for them: Geovani has an adult son Antonio Is child welfare involved? N Drug history: None Alcohol Use: None Frequency: Monthly Quantity: 1 GLASS ON SPECIAL ACCASSION LESS THEN MONTHLY Have you ever felt you ought to Cut down on drinking? Have people Annoyed you by criticizing your drinking? Have you ever felt bad or Guilty about your drinking? 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 AXIS SCREENING TOOL Peck I Mood Disorders: Peck II Personality/Mental Retardation: Peck III Medical Impairment: Alzheimer's Peck IV Problem(s) with: Health care services Other psych/environ prob Peck V: 40-Major impairment Additional Peck comments: PERSONAL BACKGROUND Relevant cultural issues (ethnicity, values, beliefs, spiritual): Spirtiual Restorationism: Hinduism Importance of scientologist to patient: High What hobbies/interests does the patient have? Garden Shopping Sexual orientation (relevant impact to current treatment): Heterosexual : Where did you serve: Branch of service: Rank: Discharge status: Are you a combat ? N Occupational/Work: Do you work? N Do you want to work? N How many hours do you work/week? 0 How many jobs have you had in the past 5 years? 0 Do you need assistance finding a job? N Does the patient need assistance in job training? N Source of income: SSI Does patient have a Payee? Y Payee name: Antonio Christensen Approximate monthly income: 1000 Does patient have adequate funds for next 30 days? Y Education background: Associate degree Highest grade completed: 12th grade Other Educational/training programs: [employer] Functional deficits: Yes, see explain Explain functional deficits: Memory Orientation/Thought Organization Communication Skills Current living situation: Facility ([facility], SNF,ILF) Address/phone where pt. is living: [address] [address] Does the patient plan to continue there after DC? Yes Patient lives with: Another facility Will family/significant other be involved in treatment? Other community support services utilized: Pt need a memory care center Support System Available (family/friend) Name: Antonio Christensen Relationship: son Name: Jennifer Christensen Relationship: daughter-law Name: Phone: Relationship: Patient strengths: Family support Community support Patient's assets: Good self care Verbal Positive support system Patient's weaknesses: Chronic hx mental illness Poor social skills Impulsive Poor social skills Additional weaknesses: Pt has Major Neurocognitive Disorder Patient's perception of current social work therapist/case management needs: Pt stated CM and SS is with care. PRELIMINARY DISCHARGE PLAN Discharge plan/Community resource contacts: Pt will discharge to memory care unit a NF or the Whole person Discharge needs: Pt will need a referral to memory care and home health. Problems anticipated on discharge: Compliance w/ med regimen Comments: (factors affecting DC plan/pt. response/interventions) Pt will discharge to memory care setting.
--- NOTE | 2018-07-15 18:39 | NUR ---
7A-7P: Report rec , care assumed. Ambulatory in halls independently and with stand by assist, to DR for meals, feeds self with set-up assist, appetite poor. Mood is quiet, withdrawn @ times, son here to visit, update given. No change in condition this shift.
[2018-07-15 20:26] VITALS: BP 107/71
--- NOTE | 2018-07-16 03:36 | NUR ---
WAS OBSERVED IN ROOM DRESSED IN [place] AND PREPARING TO GET IN BED UPON INITIAL ASSESSMENT THIS PM-STATES TO THIS NURSE "I'M SCARED" WHEN STAFF ENETERS ROOM-UPON FURTHER QUESTIONING REPORTS HEARING A NOISE IN HALLWAY AND THIS IS WHAT SCARED HER-APPEARS SURPRISED WHEN REORIENTED TO FACT THAT SHE IS IN HOSPITAL AND THERE WOULD BE SOME NOISE AND COMMOTION THROUGHOUT THE NIGHT-DENIES C/O PAIN AND DISCOMFORT-COOPERATIVE WITH HS MEDS-BLUNTED AFFECT-MINIMAL VERBAL RESPONSES
[2018-07-16 10:11] VITALS: BP 102/65
--- NOTE | 2018-07-16 20:20 | NUR ---
ASSUMED CARE OF THE PT AT 1915PM. ALERT TO NAME ONLY, REMAINS SLIGHTLY CONFUSED. THE PT CAME OUT OF HER ROOM AND IS SITTING ON THE FLOOR AT THIS TIME. DENIES SI,HI, A/V HALLUNICATIONS. DENIES PAIN AT THIS TIME. LUNGS CLEAR TO AIR BILATERALLY. RESP., EVEN, AND UNLABORED.
[2018-07-16 22:11] VITALS: BP 119/73
--- NOTE | 2018-07-17 01:38 | NUR ---
THE PT APPEARS TO HAVE BEEN RESTING QUIETLY IN BED AT THIS TIME. REMAINS ON 12 MINUTE CHECKS FOR HER SAFETY.
--- NOTE | 2018-07-17 06:03 | NUR ---
THE PT SLEPT 7.6 HOURS LAST NIGHT.
[2018-07-17 07:05] VITALS: BP 96/45
--- NOTE | 2018-07-17 11:26 | NUR ---
ASSUMED PATIENT CARE AT 0700; PATIENT ASSISTED UP FOR BREAKFAST, ATE VERY SMALL AMOUNT OF BREAKFAST. COMPLIANT WITH MEDICATIONS, REQUESTED TO GO BACK TO BED TO REST. VSS. CONTINUE TO MONITOR.
--- NOTE | 2018-07-17 19:09 | NUR ---
PATIENT WEIGHED 101.5 BED SCALES THIS DATE.
[2018-07-17 20:50] VITALS: BP 104/66
--- NOTE | 2018-07-18 03:08 | NUR ---
OBSERVED TO BE RESTLESS AT START OF SHIFT-WANDERING IN HALLWAYS AND APPROACHED NURSES STATION X2 DURING SHIFT REPORT-INITALLY UNABLE TO VERBALIZE WHAT WAS BOTHERING HER BUT DID EVENTUALLY STATE SHE HAD A PEICE OF WET PAPER BETWEEN HER LEGS-ASSISTED TO BATHROOM AND NOTED TO HAVE SMEARS OF BM ON BRIEF-WHILE SITTING ON TOILET HAD LARGE SOFT BM-WAS COOPERATIVE WITH PERINEAL CARE AND HS CARES BUT TAKES LITTLE INITIAVE TO COMPLETE ON OWN-REQUIRING CONSTANT QUEING/DIRECTION. SLIGHLTLY RESISTIVE WITH HS MEDICATION INITALLY MEDS PLACED WHOLE IN APPLESAUCE AND SHE SPIT OUT PILL INTO TISSUE-STATING SHE DOES NOT WANT IT.DENIES C/O PAIN/DISCOMFORT. CONSTRICTED AFFECT-SLIGHTLY MORE VERBAL THIS PM
[2018-07-18 07:00] VITALS: BP 103/45
[2018-07-18 07:30] VITALS: BP 103/45
[2018-07-18 07:30] LABS: CALCIUM 8.9 mg/dL (8.5-10.1); CREATININE 1.2 mg/dL (0.6-1.0); POTASSIUM 4.6 mmol/L (3.5-5.1)
--- NOTE | 2018-07-18 08:00 | NUR ---
PT UP THIS AM IN DINNING ROOM. PT DENIES ANY PAIN. PT FEEDING SELF. PT LUNGS CLEAR. PT WITHDRAWN UNLESS APPROCHED.
--- NOTE | 2018-07-18 13:00 | NUR ---
PT ATTENDED GROUP, PT USUALLY EATS AND GOES BACK TO ROOM.
--- NOTE | 2018-07-18 16:00 | NUR ---
PT WANTED THIS NURSE WANTED TO LOOK UP HER HEREDITY FOR HER. PT ALSO STATED SHE MISSED HER PARENTS.
--- NOTE | 2018-07-18 18:28 | NUR ---
ADM MAYLOX 15ML PO FOR UPSET STOMACH. KAMRON SON HERE AND STATED SHE GETS THAT SOMETIMES.
[2018-07-18 19:34] VITALS: BP 110/71
--- NOTE | 2018-07-18 19:37 | NUR ---
ASSUMED CARE OF THE PT AT 1915PM. THE PT WAS SITTING ON THE BED IN HER ROOM WHEN THIS EYEWEAR CONSULTANT CAME ON DUTY. HEART RATE REGULAR, LUNGS CLEAR BILATERALLY, RESP., EVEN AND UNLABORED. +BS HEARD IN ALL 4 QUADRANTS. +PP BILATERALLY. ALERT TO PERSON ONLY, DENIES ANXIETY, DEPRESSION, SI/HI/A/V HALLUNICATIONS. REMAINS ON 12 HOURS CHECKS FOR HER SAFETY.
--- NOTE | 2018-07-19 02:11 | NUR ---
THE PT HAS BEEN SLEEPING MOST OF THE NOC SHIFT. NO DISTRESS NOTED DURING THE NOC SHIFT. REMAINS ON 12 MINUTE CHECKS FOR HER SAFETY.
--- NOTE | 2018-07-19 06:22 | NUR ---
THE PT SLEPT 9 HOURS LAST NIGHT.
[2018-07-19 07:00] VITALS: BP 98/58
[2018-07-19 07:30] VITALS: BP 98/58
--- NOTE | 2018-07-19 07:35 | NUR ---
PT STATED SHE WANTED TO GO LAY DOWN. BREAKFAST WAS IN 20 MIN. PT STATED SHE HAS A SORE THROAT AND HEADACHE OF 8 ON 1-10 SCALE. ENCOURAGED PT TO STAY OUT FOR BREAKFAST. PT ROOM IS LOCKED TO ATTEND GROUPS. LUNGS CLEAR. UP WALKING WITH STEADY GAIT, JUST SLOW.
--- NOTE | 2018-07-19 17:37 | NUR ---
PT UP WALKING IN MEDRANO. PT FEEDING SELF NOW IN DINNING ROOM.
[2018-07-19 19:26] VITALS: BP 100/53
--- NOTE | 2018-07-19 20:41 | NUR ---
ASSUMED CARE OF THE PT AT 1915 PM. THE PT HAS BEEN WALKING UP AND DOWN THE HALLWAY. ATE A SNACK, TOOK HER HS MEDICATIONS WITHOUT ANY DIFFICULTY. THEN SHE WENT TO BED, HAD A LARGE BM EARLIER IN THE EVENING. DENIES SI, HI, ANXIETY AND DEPRESSION. DENIES A/V HALLUNICATIONS. WALKS WITH A SLOW STEADY GAIT. REMAINS ON 12 MINUTE CHECKS.
--- NOTE | 2018-07-20 03:08 | NUR ---
THE PT HAS BEEN SLEEPING MOST OF THE NIGHT, HAS BEEN UP ONCE EARLIER IN THE SHIFT TO GO TO THE BATHROOM AND THEN BACK TO BED.
--- NOTE | 2018-07-20 05:58 | NUR ---
THE PT SLEPT 8 HOURS LAST NIGHT.
[2018-07-20] MEDS ORDERED: CLARITIN10 MG PO (10:49)
--- NOTE | 2018-07-20 10:50 | NUR ---
ASSUMED PATIENT CARE AT 0700. PATIENT IN BED AT TIME. UP FOR BREAKFAST, ATE SMALL AMOUNT, ROUGHLY 25% PER DIETARY INTAKE HISTORY. COMPLIANT WITH MEDICATIONS, CRUSHED IN MEDICATIONS. DISCHARGE PLANNED FOR TODAY AT 11:30 TO [facility].
[2018-07-20] MEDS ORDERED: ACYCLOVIR 400400 MG PO (10:52)
[2018-07-20] MEDS ORDERED: ASPIRIN81 M2 PO (10:53)
[2018-07-20 10:55] VITALS: BP 100/53
--- NOTE | 2018-07-20 10:55 | NUR ---
Patient Name: ADONIS KEBEDE Admission Date: 07/07/18 DISCHARGE PLAN: Pt will be discharging to [facility]. Care Assessment: Pt was assessed by Dr. Melendrez, and was diagnosed with Major Neurocognitive Disorder. Level II Assessment: None Transportation: Pt will be transported by [facility] staff. Special Instructions/Notes: Pt will be in a lockdown memory care unit. Pt will need assistance with her care, and monitored due to elopement risk. DISCHARGE TO FACILITY: Memory Care unit Facility: [facility] Address: [address] [place] [id number] Contact Name: Chela Jang PCP: [facility] Psychiatrist: [facility]
[2018-07-20] MEDS ORDERED: DEPAKOTE SPRIN125 MG PO (11:00)
[2018-07-20] MEDS ORDERED: REMERON15 MG PO (11:00)
[2018-07-20] MEDS ORDERED: PROTONIX 20 MG20 M1 PO (11:01)
[2018-07-20] MEDS ORDERED: MIRALAX17 GM PO (11:01)
[2018-07-20] MEDS ORDERED: SYNTHROID25 MC1 PO (11:02)
[2018-07-20] MEDS ORDERED: VITAMIN D1000 UNI1 PO (11:02)
--- NOTE | 2018-07-20 11:43 | NUR ---
PATIENT DISCHARGED THIS DATE, [facility]IA [facility], TO [facility]. Lyndsey LEGER, HAD PREVIOUSLY SPOKEN TO MONAL[facility], WHO REPORTED THAT IT IS OK TO SENT TO [facility]. HOWEVER, FACILITY DOES NOT HAVE INFORMATION FROM [facility], WHO, DISCOVERED AT TIME OF CALL TO FACILITY, A [employer]. NURSE WAS TOLD THAT INFORMATION TO NURSE ACCEPTING PATIENT WILL BE CALLING ME.
--- NOTE | 2018-07-21 21:27 | D ---
[facility] [place] [address] DISCHARGE SUMMARY Name: ADONIS KEBEDE Room #: 518B-B DIS IN M.R.#: [id number] Admission: 07/07/18 ������������������ Attend Phys: Zhao Melendrez DO Discharge: 07/20/18 ������������������ Date of : 40 Report #: [id number] THIS REPORT FOR: //name// CC: Zhao Wilkinson DATE OF SERVICE: 07/20/2018 ATTENDING PHYSICIAN: Zhao Melendrez DO CRIME SCENE EXAMINER: Zeus Velasquez MD, this was a Dr. Wilkinson patient originally. DISCHARGE DIAGNOSES: Major neurocognitive disorder, most likely due to the Alzheimer disease with behavioral disturbance, improved. 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 DISCHARGE DIET: Ensure t.i.d., mechanical altered, chopped. She is discharging to [facility]. The patient will be in the Memory Care Unit. REASON FOR ADMISSION: Agitation, unable to address behaviors. The patient was transferred to medical unit at [facility]. HOSPITAL COURSE: The patient was titrated to Depakote sprinkles 250 mg twice daily, mirtazapine 50 mg at bedtime was used for appetite. The patient improved. There was some difficulty getting her placed as the patient did not have Medicaid and this was a new experience for the family. Her son became her DPOA during admission and was agreeable of discharge plan. DISCHARGE MEDICATIONS: Loratadine 10 mg orally daily, Losartan 100 mg, acyclovir 400 mg twice per day for bowel suppression, aspirin 81 mg p.o. daily for cardiac protection, Depakote sprinkles 250 mg oral twice daily. She was at a higher dose of Depakote, but her blood level is 94 and we had a couple of falls, we cut it back from I believe 750 mg twice daily, mirtazapine 50 mg orally at bedtime for appetite and sleep, MiraLax 17 g orally twice daily for bowel motility, Protonix 20 mg oral daily, levothyroxine 25 mcg oral daily, ____ Wednesday, Wednesday and Wednesday, cholecalciferol 1000 International Units oral daily. LABORATORIES THIS ADMISSION: CMP within normal limits. Ammonia was less than 10. CBC within normal limits. Depakote level is 94 on 07/10. [address] [address] DISCHARGE SUMMARY Name: ADONIS KEBEDE Room #: 518B-B [facility].#: [id number] Admission: 07/07/18 ������������������ Attend Phys: Zhao Melendrez DO Discharge: 07/20/18 ������������������ Date of : 40 Report #: [id number] PHYSICAL EXAMINATION: VITAL SIGNS: On day of discharge, very close to the ones they had from 07/19, temperature 36.3, pulse 82, respirations 17, blood pressure 100/53, O2 saturation is 91% on room air. MUSCULOSKELETAL: Normal gait and station. MENTAL STATUS EXAMINATION: This is a well-developed, thin, frail appearing black female appearing stated age. Attention limited. Concentration limited. Speech slow and soft. Thought process is linear and very limited. Thought content, poverty of thought. No psychomotor agitation. No psychomotor retardation. Denied auditory or visual type hallucinations. Denied suicidal intent or plan. Denied hopelessness or helplessness. Denied homicidal intent or plan. Memory noted to be impaired. Insight limited. Judgement limited. Fund of knowledge were below average. PROGNOSIS: For the patient is guarded due to her age and her degenerative condition. ��������������������������������������������� <ELECTRONICALLY SIGNED> ���������������������������������������� By: Zhao Melendrez DO ��������������������������������������������� 07/21/18 [id number] Zhao Melendrez DO /nt
== END 2018-07-20 11:30 | DRG 56 ==
LOC: SBH 15:22
PROVIDERS: Internal Medicine; ADMIT Psychiatry & Neurology Psychiatry
DX: G30.9 Alzheimer's disease, unspecified (principal); E43 Unspecified severe protein-calorie malnutrition; F02.81 Dementia in other diseases classified elsewhere, unspecified severity, with behavioral disturbance; F01.51 Vascular dementia, unspecified severity, with behavioral disturbance; Z68.42 Body mass index [BMI] 45.0-49.9, adult; K21.9 Gastro-esophageal reflux disease without esophagitis; E03.9 Hypothyroidism, unspecified; B00.9 Herpesviral infection, unspecified; Z91.041 Radiographic dye allergy status; Z91.013 Allergy to seafood; Z79.82 Long term (current) use of aspirin; Z79.899 Other long term (current) drug therapy
CPT/HCPCS: 10880